=== PATIENT | female | born 1930 | race Caucasian/White ===

== ENCOUNTER 2016-04-13 13:04 | Inpatient (IN) | payer OTHER ==
[~2016-04-13] VITALS: Ht 160 cm; Wt 86.2 kg
--- NOTE | ~2016-04-13 | H ---
[facility] [place] [address] HISTORY AND PHYSICAL Name: WOJCIECH FORD Room #: 305-P ADM IN M.R.#: [id number] Admission: 04/13/16 Attend Phys: Ruben Cabral MD Discharge: Date of : 31 Report #: [id number] THIS REPORT FOR: //name// CC: Dr. Neel Markham MD [facility] Donnie Cabral DATE OF SERVICE: 04/13/2016 CHIEF COMPLAINT: Shortness of breath. HISTORY OF PRESENT ILLNESS: The patient is an 85-year-old female with history of hypertension and atrial fibrillation, presented to the Emergency Room complaining of increasing shortness of breath. Apparently, patient has been just getting more debilitated since she had a fall in 01/2016. She was admitted in [place] and underwent revision of her left knee arthroplasty. Subsequently, she was admitted at [facility] for rehab. She was discharged from [facility] few days prior to [place]. The patient also had an episode of UTI that made her more debilitated. The patient is presently staying with her family member and is able to ambulate with the help of a walker. She also complains of constipation and she had some nausea earlier this morning. She had a history of CHF and she has been on p.r.n. Lasix. The patient was seen in the Emergency Room, underwent chest x-ray, which showed pleural effusion and pulmonary edema. She received Lasix. She has been seen by psychiatrist in the past for depression too. PAST MEDICAL HISTORY: Significant for atrial fibrillation diagnosed in 02/2015. She is followed by Dr. Markham. She had an echocardiogram in 09/2014, which showed normal ejection fraction and diastolic function. She also had a nuclear medicine stress test at that time, which was reported as low likelihood for ischemia. She has a history of depression, history of lumbar stenosis, back surgery in the past, bilateral total hip replacement. Total knee replacement. She had revision of the left total knee in 01/2016. History of right shoulder surgery, hysterectomy, bilateral carpal tunnel release, bowel resection, cholecystectomy, mild hypercalcemia. No history of any peptic ulcer disease or bleeding disorder. SOCIAL HISTORY: She was living with her grandson prior to being admitted at [place]. Presently, she lives with her daughter. No smoking, alcohol abuse or illicit drug abuse. FAMILY HISTORY: Father committed suicide at age 49. Mother secondary to PR. ALLERGIES: She has multiple allergies. She is allergic to CIPROFLOXACIN, [facility] [address] [place] [address] HISTORY AND PHYSICAL Name: WOJCIECH FORD Room #: 305-P ADM IN M.R.#: [id number] Admission: 04/13/16 Attend Phys: Ruben Cabral MD Discharge: Date of : 31 Report #: [id number] DOXYCYCLINE, ZETIA, FENOFIBRATE, MORPHINE, PENICILLIN, SIMVASTATIN, SULFA. Please look at the nursing documentation for reaction. HOME MEDICATIONS: Reviewed. Please look at the nursing documentation for home medications. REVIEW OF SYSTEMS: CONSTITUTIONAL: No recent weight loss, weight gain. No fever or chills. EYES: No change in vision. THROAT: Denies any sore throat. CARDIOVASCULAR: As above. She had no dizziness or palpitations. RESPIRATORY: As above. No cough, expectoration. She has had shortness of breath with minimal activity. GASTROINTESTINAL: No nausea/vomiting today, but she did have nausea/vomiting earlier. She is constipated. GENITOURINARY: No dysuria, hematuria. NEUROLOGIC: No focal numbness or weakness of extremities. PSYCHIATRIC: Denies any suicidal ideation. A 12-point review of system is negative, other than the positive and negative dictated in the history of present illness and review of systems. PHYSICAL EXAMINATION: VITAL SIGNS: Reviewed. Blood pressure is ____, heart rate of 56 per minute, afebrile. She is saturating around 93% on room air, not in acute respiratory distress. HEENT: Pupils equal and reactive to light. Throat appears normal. NECK: Supple. JVD is elevated. No bruit noted. No lymphadenopathy. CARDIOVASCULAR SYSTEM: S1, S2. Negative S3. Irregularly irregular. No murmur. CHEST: Bilateral air entry present. Reduced breath sound in the bases. She has bilateral basilar crackles. ABDOMEN: Soft. Bowel sounds present. No mass, no organomegaly, no tenderness. EXTREMITIES: Periphery has trace to 1+ pedal edema bilaterally. No calf tenderness. Very difficult to appreciate dorsalis pedis bilaterally. CHEST: She has some bruises over the lower right chest wall and right breast. No tenderness noted. LABORATORIES: Reviewed. EKG showed atrial fibrillation with nonspecific intraventricular conduction defect. There is ventricular premature complex. [place]roponin [place] [address]. Albumin is 2.7. BUN and creatinine are 25 and 1.3. AST and ALT are within normal limit. Urine is presently pending. White count ____. Normal hemoglobin, hematocrit and platelets. Chest x-ray showed unchanged cardiomegaly with increasing lower lobe atelectasis and pleural effusion with increasing left lung congestion. CT of the brain showed no acute intracranial abnormalities. There is age-related [facility] [address] [place] [address] HISTORY AND PHYSICAL Name: WOJCIECH FORD Room #: 305-P ADM IN .R.#: [id number] Admission: 04/13/16 Attend Phys: Ruben Cabral MD Discharge: Date of : 31 Report #: [id number] atrophy and chronic small vessel ischemic disease. ASSESSMENT: 1. Acute respiratory insufficiency secondary to congestive heart failure. 2. Congestive heart failure, likely acute on chronic diastolic heart failure. The patient will be continued on IV Lasix. We will consult cardiology. We will repeat echocardiogram to evaluate left ventricular function. Serial troponins have been requested to rule out any underlying ischemic heart disease. The patient is already on a beta-becca. May benefit with some angiotensin-converting inhibitor. 3. Severe debility. The patient has been getting more debilitated since she had the fall in 01/2016. We will consult physical and occupational therapy. We will also advise case reviewer come and talk to family about possible correction unit. 4. Lower extremity swelling and peripheral vascular disease. We will obtain both artery and venous Doppler of the lower extremities to rule out deep venous thrombosis and also evaluate for peripheral vascular disease. 5. Constipation. The patient will be continued on Colace, MiraLax and also Dulcolax suppository as needed. 6. Atrial fibrillation: The patient will be continued on Xarelto, beta-becca and digoxin. 7. History of depression: The patient will be continued on present home medication for depression. 8. Deep venous thrombosis prophylaxis. The patient is on Xarelto. Treatment plan has been explained to the patient and the patient's family in detail. <ELECTRONICALLY SIGNED> By: Ruben Cabral MD 04/14/16 1336 1553 1710 Ruben Cabral MD /nt
--- NOTE | ~2016-04-13 | 2DMMODE ---
[facility] [place] [address] 2 D/M-MODE ECHOCARDIOGRAM Name: WOJCIECH FORD Room #: 305-P [facility] IN M.R.#: [id number] Admission: 04/13/16 Attend Phys: Mikey Huerta Discharge: Date of : 31 Date of Service: 04/14/16 1439 Report #: [id number] THIS REPORT FOR: //name// Transthoracic Echocardiography Ordering physician: Goran Andrade MD Referring physician: Donnie Felder MD Top Stitcher: DARLIN Gotti Indications/History: CHF, Atrial fibrillation. BP: 132 / HR: 56bpm Height: 62in Weight: 189.6lb 72 Study data: M-mode, complete 2D, complete spectral Doppler, and color Doppler. Location: Bedside. Routine. Image quality was good. 2D measurements Normal Normal LVID ED 52.3mm 36-57 IVS ED 13.6mm 6-11 LVID ES 43.5mm 23-40 LVPW ED 10.4mm 6-11 LA volume 49ml/m2 16-28 AoRoot diam 32.7mm 21-37 index ED LVOT diameter 20mm 18-23 Findings: Left ventricle: The cavity size was normal. Wall thickness was normal. Systolic function was moderately to severely reduced. The estimated ejection fraction was in the range of 30% to 35%. Moderate diffuse hypokinesis. Regional wall motion abnormalities: Severe hypokinesis of the basal-mid inferoseptal, entire inferior, apical septal, and apical myocardium. Right ventricle: The cavity size was at the upper limits of normal. Systolic function was normal. Ventricular septum: Septal motion showed abnormal function and dyssynergy. Right atrium: The atrium was dilated. Left atrium: The atrium was dilated. Volume index: 49ml/m2 [facility] [address] [place] [address] 2 D/M-MODE ECHOCARDIOGRAM Name: WOJCIECH FORD Room #: 305-P ADM IN M.R.#: [id number] Admission: 04/13/16 Attend Phys: Rubenfidelia Cabral Mikey Discharge: Date of : 31 Date of Service: 04/14/16 1439 Report #: [id number] (S). Aortic valve: Trileaflet; mildly thickened, mildly calcified leaflets. Doppler: There was no stenosis. Trivial regurgitation. Peak velocity: 133.2cm/s (S). Mitral valve: Mildly calcified annulus. Doppler: There was no evidence for stenosis. Moderate regurgitation. Peak E-wave velocity: 111.9cm/s. Peak gradient: 5mm Hg (D). Tricuspid valve: Structurally normal valve. Doppler: There was no evidence for stenosis. Moderate-severe regurgitation. Regurgitant peak velocity: 318.9cm/s. Peak RV-RA gradient: 41mm Hg (S). Pulmonic valve: Structurally normal valve. Doppler: There was no evidence for stenosis. Trivial regurgitation. Pericardium: There was no pericardial effusion. Aorta: Aortic root: The aortic root was normal in size. Pulmonary artery: Systolic pressure was estimated to be 56mm Hg. Diastolic function: The study was not technically sufficient to allow evaluation of LV diastolic dysfunction due to atrial fibrillation. Systemic veins: Inferior vena cava: The vessel was dilated; respirophasic changes in dimension were absent. Conclusions 1. Left ventricle: Systolic function was moderately to severely reduced. The estimated ejection fraction was in the range of 30% to 35%. Moderate diffuse hypokinesis. 2. Ventricular septum: Septal motion showed abnormal function and dyssynergy. 3. Right atrium: The atrium was dilated. 4. Left atrium: The atrium was dilated. 5. Aortic valve: Trileaflet; mildly thickened, mildly calcified leaflets. Trivial regurgitation. 6. Mitral valve: Mildly calcified annulus. Moderate regurgitation. 7. Pulmonic valve: Trivial regurgitation. 8. Tricuspid valve: Moderate-severe regurgitation. 9. Pulmonary arteries: Systolic pressure was estimated to be 56mm Hg. [facility] [email or web address] [place] [address] 2 D/M-MODE ECHOCARDIOGRAM Name: WOJCIECH FORD Room #: 305-P [facility] IN .R.#: [id number] Admission: 04/13/16 Attend Phys: Mikey Huerta Discharge: Date of : 31 Date of Service: 04/14/16 1439 Report #: [id number] 10. Inferior vena cava: The vessel was dilated; respirophasic changes in dimension were absent. <ELECTRONICALLY SIGNED> By: Dirk Schaefer MD 04/14/16 1602 1439 01 Dirk Schaefer MD /yamini
--- NOTE | ~2016-04-13 | HC ---
[facility] [place] [address] CONSULTATION Name: WOJCIECH FORD Room #: 305-P ADM IN M.R.#: [id number] Admission: 04/13/16 Attend Phys: Ruben Cabral MD Discharge: Date of : 31 Report #: [id number] THIS REPORT FOR: //name// CC: Donnie Cabral DATE OF SERVICE: 04/13/2016 INDICATION: Dyspnea. HISTORY OF PRESENT ILLNESS: This is an 85-year-old female presenting with generalized weakness, confusion, and dyspnea. She had just been discharged from rehabilitation after undergoing a right knee/femur surgery at [facility]. She had been at [facility] for the past several weeks for rehabilitation. She was walking with a walker, but had generalized weakness today. She reports increasing shortness of breath for the past several days. There is no history of angina, fever or chills. The patient has a prior history of heart failure attributed to diastolic dysfunction. She was prescribed Lasix on a p.r.n. basis and instructed to check her daily weights. It seems that this was not followed with by family members. PAST MEDICAL HISTORY: Chronic atrial fibrillation on anticoagulation therapy, chronic kidney disease, degenerative joint disease, spinal stenosis, multiple orthopedic surgeries, general debility. ALLERGIES: Include Cipro, doxycycline and Zetia, statins. MEDICATIONS: PENICILLIN, SULFA, MORPHINE. MEDICATIONS AT HOME: Include metoprolol 100 mg daily, verapamil 240 mg daily, digoxin 0.125 mg daily, Xarelto 50 mg daily, Zoloft 50 mg, colchicine. SOCIAL HISTORY: Negative for tobacco use. FAMILY HISTORY: Negative for premature CAD. REVIEW OF SYSTEMS: A full 10-point review of systems performed. Only the pertinent positives and negatives are described in the HPI. PHYSICAL EXAMINATION: VITAL SIGNS: Blood pressure is 120/80, heart rate is 60 beats per minute. GENERAL APPEARANCE: An elderly appearing female in no acute respiratory distress. HEAD AND EYES: Normocephalic. Sclerae are anicteric. ENT: Oral mucosa moist. NECK: Supple. [facility] [address] [place] [address] CONSULTATION Name: WOJCIECH FORD Room #: 305-P ADM IN M.R.#: [id number] Admission: 04/13/16 Attend Phys: Ruben Cabral MD Discharge: Date of : 31 Report #: [id number] LUNGS: Diminished breath sounds at the bases. CARDIAC: S1, S2 positive. ABDOMEN: Soft, nontender. EXTREMITIES: Cool feet, 2-3+ bilateral lower extremity edema. LABORATORY VALUES: White count is 9.2, hemoglobin is 12.0. Sodium is 143, creatinine is 1.3. Troponin is negative. ASSESSMENT: 1. Acute on chronic diastolic heart failure, possibly related to dietary indiscretion. Continue with IV diuresis. Strict inputs and outputs should be maintained. Due to her physical disability, a Mcallister catheter should be placed. 2. Atrial fibrillation, the rate is controlled. Continue with beta becca and calcium channel becca. Check a digoxin level. 3. Hypertension. The blood pressure remains stable. 4. Hypercholesterolemia, intolerant to statins. 5. General debility, degenerative joint disease, physical therapy. Thank you for allowing me to participate in the care of your patient. <ELECTRONICALLY SIGNED> By: Goran Andrade MD 04/14/16 0838 1604 2338 Goran Andrade MD /nt
--- NOTE | ~2016-04-13 | HC ---
[facility] [place] [address] CONSULTATION Name: WOJCIECH FORD Room #: 305-P [facility] IN M.R.#: [id number] Admission: 04/13/16 Attend Phys: Ruben Cabral MD Discharge: 04/16/16 Date of : 31 Report #: [id number] THIS REPORT FOR: //name// CC: Donnie Cabral DATE OF SERVICE: 04/14/2016 HISTORY OF PRESENT ILLNESS: We were asked by Dr. Cabral to see the patient. The patient is an 85-year-old admitted yesterday with concerns about fluid retention and purple feet. The patient had a leg fracture in January and was in [facility], and according to the family has been progressing slowly since that time. Apparently yesterday, the patient was admitted without her clear knowledge of the event and among other issues had problems with fluid retention and purple discoloration of the feet and concerns about worsening heart failure. PAST MEDICAL HISTORY: Significant for atrial fibrillation, hypertension and chronic kidney disease. MEDICATIONS: Xarelto, digoxin, nitrofurantoin, metoprolol, verapamil, Zoloft, Cymbalta, Lasix, allopurinol and colchicine. ALLERGIES: CIPRO, DOXYCYCLINE, ZETIA, FENOFIBRATE, MORPHINE, PENICILLIN, SIMVASTATIN and SULFA. REVIEW OF SYSTEMS: GENERAL: The patient has a few complaints. As mentioned, the patient is not fully aware of the circumstances surrounding her admission. CONSTITUTIONAL: No new fatigue or sleeping problems. HEENT: No new hearing, vision, headache or vertigo. RESPIRATORY: No shortness of breath described. CARDIAC: No chest pain. SKIN: No rash or infection. The purple discoloration of the feet is noted, but no ulceration. ENDOCRINE: No hot or cold intolerance. GASTROINTESTINAL: No nausea or vomiting. GENITOURINARY: No frequency or urgency. NEUROLOGIC: No seizures or neuropathy. PSYCHIATRIC: Memory of events surrounding admission are not clear, but in general, no hallucinations or anxiety. MUSCULOSKELETAL: No joint pain, no muscle pain, but does have swelling of the feet. IMMUNOLOGIC: No lupoid rash, no rheumatoid arthritides. PHYSICAL EXAMINATION: VITAL SIGNS: Blood pressure 132/72, heart rate 68, respiratory rate 18, [facility] [address] [place] [address] CONSULTATION Name: WOJCIECH FORD Room #: 305-P DIS IN M.R.#: [id number] Admission: 04/13/16 Attend Phys: Ruben Cabral MD Discharge: 04/16/16 Date of : 31 Report #: [id number] temperature 36.6 and O2 sat 92 on room air. GENERAL: The patient responds to questions appropriately but her memory is poor. HEENT: No scleral icterus, no arcus. Pupils are round and equal. Gaze is conjugate. NECK: No lymphadenopathy and no bruit. CHEST: Some crackles, more on the left than the right. HEART: Rhythm is irregular. I hear no murmurs. ABDOMEN: Soft, no mass and no tenderness. EXTREMITIES: Does have some swelling and purplish discoloration, no ulceration. I do feel 2+ left dorsalis pedis pulse and 1+ left popliteal pulse. I do not feel popliteal or distal pulses on the right. MUSCULOSKELETAL: No bone or joint deformity or dyssymmetry. NEUROLOGIC: No motor or sensory deficit, oriented to place and person. SKIN: No rash or infection. ASSESSMENT AND PLAN: The patient seems to have fluid retention with increased venous pattern. ____ thrombosis was noted on a duplex scan. There appears to be no evidence for arterial insufficiency, swelling in general was venous or lymphatic and purplish discoloration is typically increased venous pressure. The patient has no complaints of lower extremity issues and I see no cause for intervention at this point from our standpoint. Thank you for the consult. <ELECTRONICALLY SIGNED> By: Nico Velasquez MD 04/19/16 1024 1402 1740 Nico Velasquez MD /nt
--- NOTE | ~2016-04-13 | EKG ---
[address] [place] [address] ELECTROCARDIOGRAM REPORT Name: WOJCIECH FORD Room #: 305-P ADM IN M.R.#: [id number] Admission: 04/13/16 Attend Phys: Ruben Cabral MD Discharge: Date of : 31 Report #: [id number] THIS REPORT FOR: //name// [facility] ED Test Date: 2016-04-13 Test Time: 13:07:52 Pat Name: WOJCIECH FORD Department: Room: 305 Gender: F Fashion Director: BRITT : 1930 Requested By: Andre Wilson Order Number: [id number] MD: Zaheer Galeas Measurements Intervals [place] Rate: 80 P: [place]: QRS: 190 QRSD: 148 T: 89 QT: 382 QTc: 441 Interpretive Statements Atrial fibrillation Ventricular premature complex Anterolateral infarct, age indeterminate No previous ECG available for comparison Electronically Signed On 04-14-2016 8:53:56 PROFILE MILL OPERATOR TAPE CONTROL by Zaheer Galeas [email or web address] <ELECTRONICALLY SIGNED> By: Zaheer Galeas MD, [facility] 04/14/16 0853 1307 1307 Zaheer Galeas MD, FACC /EPI
[~2016-04-13 13:04] MED LIST: ALLOPURINOL 10100 M2 PO; APAP650 PO; ASPIR 8181 MG PO; ATENOLOL 100MG100 MG PO; AZITHROMYCIN 2250 MG PO; BUPROPION HCL100 MG PO; BYSTOLIC 5 MG5 M1 PO; COLCHICINE0.6 MG PO; COZAAR 25 MG TA25 M1 PO; CYMBALTA30 MG PO; LANOXIN 0.120.125 M2 PO; LASIX 80 MG TAB80 MG PO; METOPROLOL SUC100 MG PO; NAPROSYN500 MG PO; NITROFURANTOIN100 MG PO; SERTRALINE HCL50 MG PO; TIAZAC360 M1 PO; VERAPAMIL E.R240 M1 PO; XARELTO15 MG PO; ZOLOFT50 MG PO
[2016-04-13 13:05] VITALS: BP 129/71
[2016-04-13 14:03] LABS: ABSOLUTE NEUTROPHILS 7.4 thou/uL (1.4-8.2); BASOPHILS 0.4 % (0.0-2.0); EOSINOPHILS 1.3 % (0.0-3.0); HEMATOCRIT 37.7 % (37.0-47.0); LYMPHOCYTES 9.6 % (24.0-44.0); MANUAL DIFF NO; MCH 27.4 pg (26.0-34.0); MCHC 31.8 % (28.0-37.0); MCV 86.2 fL (80.0-100.0); MONOCYTES 8.8 % (1.0-8.0); PLATELET COUNT 225 thou/uL (150-400); POLYS 79.9 % (36.0-66.0); RBC 4.38 mil/uL (4.20-5.00); RDW 17.8 % (10.5-14.5); WBC 9.2 thou/uL (4.0-11.0)
[2016-04-13 14:11] LABS: CALCIUM 9.7 mg/dL (8.5-10.1); CREATININE 1.3 mg/dL (0.6-1.3); POTASSIUM 4.5 mmol/L (3.5-5.1)
[2016-04-13 14:24] LABS: ALBUMIN 2.7 g/dL (3.4-5.0); TOTAL PROTEIN 7.1 g/dL (6.4-8.2); TROPONIN-I 0.05 ng/mL (<0.04-0.07)
[2016-04-13 16:35] VITALS: BP 127/75
[2016-04-13 19:33] VITALS: BP 113/69
[2016-04-13 23:22] VITALS: BP 113/58
[2016-04-14 02:28] LABS: CALCIUM 9.2 mg/dL (8.5-10.1); CREATININE 1.3 mg/dL (0.6-1.3); MAGNESIUM 1.9 mg/dL (1.8-2.4); POTASSIUM 4.1 mmol/L (3.5-5.1)
[2016-04-14 02:31] LABS: ABSOLUTE NEUTROPHILS 6.2 thou/uL (1.4-8.2); BASOPHILS 1.4 % (0.0-2.0); EOSINOPHILS 2.4 % (0.0-3.0); HEMATOCRIT 36.4 % (37.0-47.0); HEMOGLOBIN 11.3 gm/dL (12.0-15.0); MCH 27.1 pg (26.0-34.0); MCV 87.7 fL (80.0-100.0); MONOCYTES 9.2 % (1.0-8.0); PLATELET COUNT 212 thou/uL (150-400); RBC 4.16 mil/uL (4.20-5.00); WBC 8.6 thou/uL (4.0-11.0)
[2016-04-14 02:42] LABS: MANUAL DIFF NO
[2016-04-14 03:36] VITALS: BP 99/62
[2016-04-14 08:37] VITALS: BP 132/72
[2016-04-14 11:33] LABS: URINE BILIRUBIN NEGATIVE (Negative); URINE BLOOD 2+ (Negative); URINE COLOR YELLOW; URINE GLUCOSE-RANDOM* NEGATIVE (Negative); URINE KETONES NEGATIVE (Negative); URINE LEUKOCYTES-REFLEX TRACE (Negative); URINE PROTEIN (DIPSTICK) NEGATIVE (Negative); URINE UROBILINOGEN 0.2 E.U./dl (0.2-1.0)
[2016-04-14 11:55] LABS: CRYSTALS None Seen /LPF (None Seen); HYALINE CASTS 0-3 Few /LPF (None Seen); SQUAMOUS 0-3 Few /LPF (0-3); URINE WBC-REFLEX 6-15 Few /HPF (0-5)
[2016-04-14 15:48] VITALS: BP 96/65
[2016-04-14 19:33] VITALS: BP 118/70
[2016-04-15 04:18] VITALS: BP 110/68
[2016-04-15 06:06] LABS: CALCIUM 9.4 mg/dL (8.5-10.1); CREATININE 1.4 mg/dL (0.6-1.3); MAGNESIUM 1.8 mg/dL (1.8-2.4); POTASSIUM 4.2 mmol/L (3.5-5.1)
[2016-04-15 08:19] VITALS: BP 126/75
[2016-04-15 15:10] VITALS: BP 112/61
[2016-04-15 20:00] VITALS: BP 131/73
[2016-04-16 04:00] VITALS: BP 106/56
[2016-04-16 06:34] LABS: CALCIUM 9.5 mg/dL (8.5-10.1); CREATININE 1.3 mg/dL (0.6-1.3); POTASSIUM 4.3 mmol/L (3.5-5.1)
[2016-04-16 07:25] VITALS: BP 117/73
[2016-04-16] MEDS ORDERED: LISINOPRIL5 MG PO (11:40)
[2016-04-16] MEDS ORDERED: K-DUR 20 MEQ T20 MEQ PO (11:40)
[2016-04-16] MEDS ORDERED: LASIX 40 MG TAB40 M2 PO (11:40)
[2016-04-16 12:09] VITALS: BP 117/73
[2016-04-16 12:15] VITALS: BP 114/68
[2016-04-16 15:32] VITALS: BP 117/73
== END 2016-04-16 16:00 | disposition home health service (06) | DRG 291 ==
LOC: ER 13:04 → 3N 16:31
PROVIDERS: Internal Medicine; Physician Assistant
DX: I13.0 Hypertensive heart and chronic kidney disease with heart failure and stage 1 through stage 4 chronic kidney disease, or unspecified chronic kidney disease (principal); E43 Unspecified severe protein-calorie malnutrition; J96.00 Acute respiratory failure, unspecified whether with hypoxia or hypercapnia; I50.43 Acute on chronic combined systolic (congestive) and diastolic (congestive) heart failure; I73.9 Peripheral vascular disease, unspecified; E78.00 Pure hypercholesterolemia, unspecified; I07.1 Rheumatic tricuspid insufficiency; N18.9 Chronic kidney disease, unspecified; E83.52 Hypercalcemia; I48.2 Chronic atrial fibrillation; F32.9 Major depressive disorder, single episode, unspecified; K59.00 Constipation, unspecified; M48.06 Spinal stenosis, lumbar region; M19.90 Unspecified osteoarthritis, unspecified site; Z96.641 Presence of right artificial hip joint; Z96.653 Presence of artificial knee joint, bilateral; Z96.611 Presence of right artificial shoulder joint; Z96.612 Presence of left artificial shoulder joint; Z68.33 Body mass index [BMI] 33.0-33.9, adult; Z79.01 Long term (current) use of anticoagulants; Z90.710 Acquired absence of both cervix and uterus; Z90.49 Acquired absence of other specified parts of digestive tract; Z88.1 Allergy status to other antibiotic agents; Z88.6 Allergy status to analgesic agent; Z88.8 Allergy status to other drugs, medicaments and biological substances; Z88.0 Allergy status to penicillin; Z88.2 Allergy status to sulfonamides; Z79.899 Other long term (current) drug therapy; Z82.49 Family history of ischemic heart disease and other diseases of the circulatory system; Z91.81 History of falling
CPT/HCPCS: 10096

== ENCOUNTER 2016-04-21 10:41 | Emergency (ER) | payer OTHER ==
[~2016-04-21] VITALS: Ht 165.1 cm; Wt 81.7 kg
[~2016-04-21 10:41] MED LIST changes: +K-DUR 20 MEQ T20 MEQ PO; +LASIX 40 MG TAB40 M2 PO; +LISINOPRIL5 MG PO
[2016-04-21 11:14] LABS: HEMATOCRIT 38.7 % (37.0-47.0); HEMOGLOBIN 12.3 gm/dL (12.0-15.0); MCH 27.1 pg (26.0-34.0); MCHC 31.9 % (28.0-37.0); PLATELET COUNT 217 thou/uL (150-400); RBC 4.55 mil/uL (4.20-5.00); RDW 18.6 % (10.5-14.5)
[2016-04-21 11:17] LABS: URINE BLOOD NEGATIVE (Negative); URINE COLOR YELLOW; URINE GLUCOSE-RANDOM* NEGATIVE (Negative); URINE KETONES NEGATIVE (Negative); URINE LEUKOCYTES-REFLEX NEGATIVE (Negative); URINE PROTEIN (DIPSTICK) TRACE (Negative)
[2016-04-21 11:18] LABS: MANUAL DIFF YES
[2016-04-21 11:19] LABS: URINE BILIRUBIN NEGATIVE (Negative)
[2016-04-21 11:21] LABS: CALCIUM 10.1 mg/dL (8.5-10.1); CREATININE 1.4 mg/dL (0.6-1.3); POTASSIUM 4.4 mmol/L (3.5-5.1)
[2016-04-21 11:37] LABS: ABSOLUTE NEUTROPHILS 9.2 thou/uL (1.4-8.2); ANISOCYTOSIS 1+; TOTAL CELL COUNT 100
[2016-04-21 12:49] LABS: ABG SAMPLE TYPE ARTERIAL; BE(vivo) 3.8 mmol/L (-2 to +3); LACTATE 1.78 mmol/L (0.5-2.0); O2(CT) 17.1 mL/dL (15.0-23.0); O2Hb 93.2 % (92.0-98.0); PCO2 35.8 mmHg (35.0-45.0); PO2 74.5 mmHg (80.0-100.0); STICK SITE L.BRACHIAL; pH 7.495 (7.360-7.450); sO2 96.1 % (92.0-98.0); tCO2 28.1 mmol/L (24.0-30.0)
== END 2016-04-21 13:25 | disposition home or self-care (01) ==
LOC: ER 10:41
PROVIDERS: Emergency Medicine
DX: R41.0 Disorientation, unspecified (principal); Z90.710 Acquired absence of both cervix and uterus; Z90.49 Acquired absence of other specified parts of digestive tract; Z96.653 Presence of artificial knee joint, bilateral; Z96.612 Presence of left artificial shoulder joint; Z96.611 Presence of right artificial shoulder joint; Z88.1 Allergy status to other antibiotic agents; Z88.5 Allergy status to narcotic agent; Z88.0 Allergy status to penicillin; Z88.2 Allergy status to sulfonamides; Z88.8 Allergy status to other drugs, medicaments and biological substances

== ENCOUNTER 2016-08-06 14:28 | Inpatient (IN) | payer OTHER ==
[2016-08-06] VITALS (7 sets, daily range): BP systolic 80–108; BP diastolic 41–82
[~2016-08-06] VITALS: Ht 160 cm; Wt 70.9 kg
--- NOTE | ~2016-08-06 | D ---
[facility] [address] DISCHARGE SUMMARY Name: WOJCIECH FORD Room #: 202-P [facility] IN M.R.#: [id number] Admission: 08/06/16 Attend Phys: Ruben Cabral MD Discharge: 08/14/16 Date of : 31 Report #: [id number] THIS REPORT FOR: //name// CC: Donnie Cabral DATE OF SERVICE: 08/14/2016 The patient was admitted to the hospital on 08/06/2016, discharged from the hospital on 08/14/2016. HISTORY OF PRESENT ILLNESS: The patient is an 85-year-old female with history of CHF, who presented to the hospital with dyspnea. Please refer to the admission H and P for details. In brief, the patient was also found to be hypotensive, and had elevated white counts on admission. She was also found to be in the acute on chronic renal failure. The patient was found to have pneumonia. HOSPITALIZATION COURSE: The patient was hospitalized at [facility]. She was started on broad spectrum antibiotics for pneumonia. The patient was treated in the ICU for respiratory failure. Safety Person and Infectious disease specialist were consulted. The patient was on the triple antibiotics. The patient has slow improvement. Eventually, the patient's oxygen requirement was low. She was severely lethargic shortly after admission, but it has completely resolved. Currently, the patient is in room air. She did not require BiPAP or intubation. Chest x-ray revealed right-sided pleural effusion, so thoracentesis was performed. Fluid analysis was consistent with transudate. The patient also was found to have acute kidney injury and chronic kidney failure, stage 3. Waiter/Waitress Tourist Class was consulted. Creatinine has improved after diuretics were held. The patient also has chronic atrial fibrillation. She is on metoprolol at home, that was continued. She was also treated with digoxin. Verapamil was held. The patient's heart failure remained compensated. JOSEPH inhibitors were held due to renal failure, and currently lisinopril is on hold. The patient's heart failure is compensated. She feels well, and her overall condition is stable. The patient was assessed by physical therapist. She will be transferred to the correction facility. [address] [address] DISCHARGE SUMMARY Name: WOJCIECH FORD Room #: 202-P [facility] IN .R.#: [id number] Admission: 08/06/16 Attend Phys: Ruben Cabral MD Discharge: 08/14/16 Date of : 31 Report #: [id number] DISCHARGE DIAGNOSES: 1. Healthcare-associated pneumonia, clinically much better. Zithromax will be continued for next few days. Vancomycin, aztreonam are already discontinued. 2. Acute respiratory failure due to above, resolved. The patient did not require intubation. 3. Right pleural effusion, status post thoracentesis. Findings are consistent with transudate. 4. Severe sepsis due to pneumonia, resolved. 5. Acute renal failure on chronic kidney disease stage 3. Much better. Current creatinine is 1.8, from 3.0. Lisinopril was held, and diuretics were also suspended. 6. Chronic atrial fibrillation, rate controlled. Xarelto is resumed. 7. Congestive heart failure, systolic. Ejection fraction between 30% and 35%. Currently compensated. The patient is on metoprolol. ARB and JOSEPH inhibitors avoided due to renal failure. DISCHARGE MEDICATIONS: Please refer to the medication reconciliation list in EMR. FOLLOWUP PLAN: 1. Follow up with the primary care physician in 1-2 weeks. 2. Follow up with the general education professor in 2-3 weeks. I spent more than 30 minutes to coordinate the patient's discharge from the hospital. <ELECTRONICALLY SIGNED> By: Will Myers MD 08/17/16 1247 1131 1253 Will Myers MD /nt
--- NOTE | ~2016-08-06 | H ---
[facility] [place] [address] HISTORY AND PHYSICAL Name: WOJCIECH FORD Room #: 170-10 ADM IN M.R.#: [id number] Admission: 08/06/16 Attend Phys: Ruben Cabral MD Discharge: Date of : 31 Report #: [id number] THIS REPORT FOR: //name// CC: Donnie Cabral DATE OF SERVICE: 08/06/2016 CHIEF COMPLAINT: Dyspnea. HISTORY OF PRESENT ILLNESS: The patient is an 85-year-old female with history of cardiomyopathy with EF of 35%, history of CHF, presented to the emergency room complaining of progressively worsening shortness of breath over the last couple of days. The patient denies any chest pain. No cough or expectoration. No fever or chills. Apparently, she lost around 80 pounds in the last few months. The patient was admitted here in April of this year for CHF. She had echocardiogram done at that time, which showed an EF of 30-35%, moderate diffuse hypokinesis and also nddwvncf-qw-ghvgov tricuspid regurgitation and moderate mitral regurgitation. She is followed by Dr. Markham. At that time, she also underwent further workup including a venous Doppler of lower extremity, which showed no evidence of any deep vein thrombosis. She also had acute renal failure during that admission. The patient had a fall in January 2016 and was admitted to [place] and underwent revision of the left total knee arthroplasty. The patient states she has been doing fairly well until 2 days ago when she started having progressive shortness of breath. She has had one episode of nausea and vomiting. Denies any abdominal pain. No fever or chills. No diarrhea. On arrival to the emergency room, the patient was found to be hypotensive. Her initial blood pressure was 86/43. She received 2 liters of fluid and presently her blood pressure is 102/60. PAST MEDICAL HISTORY: Significant for cardiomyopathy, EF of 30-35%; mitral regurgitation and tricuspid regurgitation. No peptic ulcer disease or bleeding disorder and no history of any stroke. No history of any diabetes. She does have history of hypertension. She has history of depression, lumbar stenosis, back surgery in the past, bilateral total knee replacement, total hip replacement, revision of the left total knee in January 2016, history of right shoulder surgery, hysterectomy, bilateral carpal tunnel release, bowel resection, cholecystectomy, and mild hypercalcemia. SOCIAL HISTORY: She lives with her daughter. No history of alcohol abuse or illicit drug abuse. She walks with help of a walker. [address] [address] HISTORY AND PHYSICAL Name: WOJCIECH FORD Room #: 170-10 ADM IN [facility].#: [id number] Admission: 08/06/16 Attend Phys: Ruben Cabral MD Discharge: Date of : 31 Report #: [id number] FAMILY HISTORY: Father committed suicide at age 49. Mother of [place]. ALLERGIES: She has multiple allergies, please look at the nursing documentation. HOME MEDICATIONS: Please look at the nursing documentation. Home meds were reviewed. REVIEW OF SYSTEMS: CONSTITUTIONAL: She has lost weight. She says she might have lost around 80 pounds. No fever or chills. EYES: No change in vision. THROAT: Denies any sore throat. CARDIOVASCULAR: As above. RESPIRATORY: As above. GASTROINTESTINAL: As above. GENITOURINARY: No dysuria or hematuria. NEUROLOGIC: No focal numbness or weakness of the extremity. PSYCHIATRIC: No anxiety or depression. A 12-point review of system is negative other than the positive and negative dictated in the history of present illness and in the review of system. PHYSICAL EXAMINATION: VITAL SIGNS: Blood pressure is 102/60, heart rate of 69 per minute, afebrile. GENERAL: The patient is awake and alert, not in acute respiratory distress. EYES: Pupils equal, reactive to light, nonicteric, conjunctivae. NECK: Supple. JVD is elevated. No bruit. No lymphadenopathy. CARDIOVASCULAR SYSTEM: S1, S2, negative S3. Soft systolic murmur in the left sternal border. CHEST: Bilateral air entry present. Bilateral wheeze present, few crackles noted in the bases. ABDOMEN: Soft, bowel sounds present, no mass, no organomegaly, and no tenderness. PERIPHERY: Has trace pedal edema. Dorsalis pedis 1+. NEUROLOGIC: No gross focal neurological deficit. LABORATORY DATA: Labs reviewed. White count is 11, hemoglobin is 12.8, and platelet is 159. Differential on the white count showed 85% segs, 1% bands. PT/INR pending. ABG done today showed a pH of 7.38, pCO2 of 31 and a pO2 of 72. Lactate is elevated at 4.2. Chemistry showed a potassium of 5.6, bicarb is 19, BUN and creatinine 51 and 2.8. Calcium is 10.2. AST and ALT 89 and 38. Bilirubin is 2.8. Troponin less than 0.04. BNP is 8654. EKG, sinus rhythm with ventricular premature complex intraventricular conduction defect and the left ventricular hypertrophy. Chest x-ray showed no acute abnormality. [facility] [address] [place] [address] HISTORY AND PHYSICAL Name: WOJCIECH FORD Room #: 170-10 ADM IN Michelle#: [id number] Admission: 08/06/16 Attend Phys: Ruben Cabral MD Discharge: Date of : 31 Report #: [id number] ASSESSMENT AND PLAN: 1. Hypotension. Probably rule out early sepsis, could be secondary to severe cardiomyopathy. The patient has received 2 liters of fluid. She appears to be volume overloaded at present. We will discontinue IV fluid. We will start her on IV Levophed. Cardiology will be consulted. Anticipate that she may need some Lasix if her blood pressure improves. The patient has been cultured, has been empirically started on Azactam and vancomycin. Pulmonary and critical care will also be consulted. We will repeat echocardiogram to evaluate LV function. We will also obtain serial troponin. I have also requested a VQ scan to rule out any pulmonary embolism. The patient will be started on IV heparin at this point. 2. History of atrial fibrillation, on Xarelto. We will hold off on Xarelto because of her acute renal failure. Will be on IV heparin at present. 3. Acute renal failure, likely prerenal probably secondary from her low blood pressure. We will consult nephrology. We will place a Mcallister catheter. We will follow renal function closely. 4. Hyperkalemia. The patient will be treated with Kayexalate. We will repeat potassium this evening. 5. Hypertension. Presently, the patient's blood pressure is low and we will also hold off on lisinopril in the setting of acute renal failure and hyperkalemia. 6. Deep venous thrombosis prophylaxis. She will be on heparin. Treatment plan has been explained to the patient in detail. <ELECTRONICALLY SIGNED> By: Ruben Cabral MD 08/06/167 1729 55 Ruben Cabral MD /nt
--- NOTE | ~2016-08-06 | CNG ---
[facility] [place] [address] CYTO-NONGYN REPORT PROCEDURE Name: WOJCIECH FORD Room #: 245-P ADM IN M.R.#: [id number] Admission: 08/06/16 Date of : 31 Discharge: Report #: [id number] Path Case #: [id number] CYTOPATHOLOGY REPORT COLLECTION DATE: 08/10/2016 RECEIVED DATE: 08/10/2016 SUBMITTING PHYS: Dr. Homar Patrick OTHER PHYS: Dr. Donnie Cabral CLINICAL HISTORY: Septic shock, Resp Failure SPECIMEN(S) RECEIVED: A.Pleural fluid * * * * * * * * * * * * FINAL DIAGNOSIS: A. Pleural fluid: - No malignant epithelial cells identified. Reactive mesothelial cells and acute and chronic inflammatory cells are identified. PATHOLOGIST: Janey Watson M.D. REPORT ELECTRONICALLY SIGNED BY: Janey Watson M.D. DATE/TIME: 08/11/2016 12:53 * * * * * * * * * * * * GROSS PATHOLOGY: A. Pleural fluid: The specimen is submitted unfixed, labeled "Wojciech Ford". Received by the Cytology Department is 12 mL of clear yellow fluid. One ThinPrep slide and a cell block were prepared. (mm 08.10.2016) TRAIN CLERK(S): Amira Mckinney, CT(ASCP), IAC INITIAL CPT CODE(S): A; 86359, 41796 Professional services performed by [facility] at [facility] [address], [place] [address] Technical services performed by [facility] at [address] [place] [address]., [address], [place] [address]. [facility] [address] [place] [address], [facility] [[email or web address] [address] [place], [place] [address] [place] [address] [place] [address] CYTO-NONGYN REPORT PROCEDURE Name: WOJCIECH FORD Room #: 245-P ADM IN M.R.#: [id number] Admission: 08/06/16 Date of : 31 Discharge: Report #: [id number] Path Case #: [id number] PHONE: [phone] DIRECTOR: Dread Millan M.D. * * * END OF REPORT * * *
--- NOTE | ~2016-08-06 | HC ---
[facility] [place] [address] CONSULTATION Name: WOJCIECH FORD Room #: 245-P ADM IN M.R.#: [id number] Admission: 08/06/16 Attend Phys: Ruben Cabral MD Discharge: Date of : 31 Report #: [id number] THIS REPORT FOR: //name// CC: Donnie Cabral REASON FOR CONSULTATION: Elevated creatinine. REASON FOR PRESENTATION: Shortness of breath. HISTORY OF PRESENT ILLNESS: This is an 85-year-old who had been in the hospital on multiple occasions. She is known to have heart failure with reported ejection fraction of 35%, xvyfjsjr-ry-qhmogd tricuspid regurgitation. She is followed by Dr. Markham. She presented to the emergency room complaining of shortness of breath. This has been progressively worsening in the last few days. The patient is usually maintained on 2 liters of oxygen at home. She denies any fever, chills or cough. She denies any change in the lower extremity swelling. She tells me that she is maintained on furosemide at home. She takes about 40 mg of furosemide a day. She lives with her daughter. She is strict with her salt intake. On presentation to the emergency room, the patient was found to have a creatinine of around 3. I was consulted to manage her kidney related issues. Looking at the patient's labs, it does look like the patient has chronic kidney disease. She was here back in April of 2016, and at that time, her creatinine was around 1.4; however, back in 2015, her creatinine had been in the 1.7 to 2 range. Her renal ultrasound was also reviewed and this was pretty much unremarkable for any acute kidney related issues. Her echo back in April of 2016 revealed an ejection fraction of around 30% with mild diffuse hypokinesis and moderate mitral regurgitation with severe tricuspid regurgitation. Her pulmonary artery pressure was evaluated at that time and it was thought to be at 60 mmHg. Stress test was done at that time along with further evaluation of her heart condition by Dr. Markham. It was listed on her discharge medications at that time that the patient should be on furosemide, digoxin, Xarelto, metoprolol, lisinopril, verapamil and potassium. The patient is not really sure about her medications. When evaluated this morning, she was alert, oriented. Creatinine was down to 2.9. PAST MEDICAL HISTORY: Numerous and include the followin. Chronic kidney disease. 2. Hypertension. 3. Heart failure with an ejection fraction of around 30%. 4. AFib. 5. Lumbar canal stenosis. 6. Bilateral total knee replacement. 7. Total hip replacement. 8. Right shoulder surgery. 9. Hysterectomy. 10. Bilateral carpal tunnel release. [address] [address] CONSULTATION Name: WOJCIECH FORD Room #: 245-P [facility] IN M.R.#: [id number] Admission: 08/06/16 Attend Phys: Ruben Cabral MD Discharge: Date of : 31 Report #: [id number] 11. Cholecystectomy. 12. Bowel resection. ALLERGIES: Numerous including PENICILLIN, SULFA and MORPHINE. SOCIAL HISTORY: She lives with her daughter. No drug or alcohol abuse. She used to be a reservations and ticketing agent. FAMILY HISTORY: Her mother has coronary artery disease. Her father of suicide. HOME MEDICATIONS: As I have stated, listed in the patient's medications the followin. Xarelto. 2. Verapamil. 3. Digoxin. 4. Lisinopril. 5. Lasix. REVIEW OF SYSTEMS: GENERAL: No fever or chills. CARDIOVASCULAR: Significant for shortness of breath. PULMONARY: No cough. GASTROINTESTINAL: Occasional nausea, but no vomiting. GENITOURINARY: No frequency, no urgency. PHYSICAL EXAMINATION: GENERAL: She is alert, oriented, in no apparent distress. VITAL SIGNS: Blood pressure was 115/72, on low-dose Levophed. Blood pressure when she was 86/43. HEAD AND NECK: No jugular venous distention. CHEST: Decreased air entry bilaterally. CARDIOVASCULAR: No rub detected. ABDOMEN: Soft, nontender. LOWER EXTREMITIES: Trace edema. LABORATORY VALUES: Reviewed. Creatinine on the trend down at 2.9 this morning. Blood sugar is on the low side. Phosphorus is mildly elevated at 6. Blood count showed mild leukocytosis. Blood gas reviewed. U/A with plus protein. No previous serum gvumsax-db-uergphkxbp ratio. Chest x-ray reviewed. ASSESSMENT, IMPRESSION AND PLAN: 1. Chronic kidney disease. 2. Advanced heart failure with an ejection fraction of 35%. [facility] [address] [place] [address] CONSULTATION Name: WOJCIECH FORD Room #: 245-P [facility] IN M.R.#: [id number] Admission: 08/06/16 Attend Phys: Ruben Cabral MD Discharge: Date of : 31 Report #: [id number] 3. Acute kidney injury. 4. Atrial fibrillation. 5. Her creatinine is slightly above her baseline and she is not making any progress with her urine. I will reduce the rate of her IV fluids. 6. Start Lasix. 7. She had an evidence of hyperkalemia yesterday. However, this has corrected with a dose of Kayexalate. 8. She does have very significant right-sided pleural effusion and I think that this is contributing to her issues. There might be an element of pneumonitis on that side that might have caused her sepsis like picture with an elevated white blood cells and hypertension. 9. Cultures were obtained. 10. Appropriate antibiotics were initiated. 11. Cardiology consultations. 12. Resume her diuretics. 13. We will initiate an angiotensin-converting enzyme inhibitor down the road. 14. We will defer further management of her cardiac issues to the cardiology team. <ELECTRONICALLY SIGNED> By: Nichelle Valdez MD 08/08/16 1640 0738 1152 Nichelle Valdez MD /nt
--- NOTE | ~2016-08-06 | HC ---
[facility] [place] [address] CONSULTATION Name: WOJCIECH FORD Room #: 245-P ADM IN M.R.#: [id number] Admission: 08/06/16 Attend Phys: Ruben Cabral MD Discharge: Date of : 31 Report #: [id number] THIS REPORT FOR: //name// CC: Donnie Cabral REASON FOR CONSULTATION: I was asked to evaluate concerning pneumonia and shock. HISTORY OF PRESENT ILLNESS: The patient is an 85-year-old with underlying history of cardiomyopathy with valvular heart disease. Hospitalized here in April with uncompensated congestive heart failure. She presents now with acute onset of shortness of breath, generalized weakness. This occurred 3 days ago. She has had no fever, chills or sweats. No cough or sputum production. No pleuritic chest pain. She is now on oxygen per nasal cannula at 2 liters. She does use oxygen at night as a baseline over the last 4 to 6 months. She has had no travel. No injuries. No exposure to other ill persons. She lives at home with her daughter. Immunization is up to date. She is a nonsmoker. When she was she was hypotensive. She had fluid resuscitation, placed in the Intensive Care Unit. She is now on 2 liters of oxygen per nasal cannula. She is on low dose Levophed drip. She has had approximately 3 liters of intake and minimal output. REVIEW OF SYSTEMS: Notes no rash, change in her baseline degenerative arthritis symptoms. No headache, pharyngitis symptoms. No adenopathy or weight loss. No dysuria or frequency. One episode of nausea, but no abdominal pain or diarrhea. PAST MEDICAL HISTORY: Cardiomyopathy, mitral regurgitation, tricuspid regurgitation, hypertension, depression, back surgery, bilateral total knee arthroplasties, total hip arthroplasty, bilateral shoulder surgeries, hysterectomy, bilateral carpal tunnel release, bowel resection, cholecystectomy, bilateral shoulder replacements. FAMILY HISTORY: Noncontributory. SOCIAL HISTORY: As noted above with no additions. PHYSICAL EXAMINATION: VITAL SIGNS: Afebrile and hemodynamically stable. GENERAL: She is alert and cooperative and pleasant, in no acute distress. HEENT: Unremarkable. NECK: Supple. SKIN: Unremarkable. LYMPHATIC: Unremarkable. LUNGS: Decreased breath sounds in the right base posteriorly. HEART: Regular with a 1/6 systolic murmur heard best at right sternal border. No gallop or rub. [address] [address] CONSULTATION Name: WOJCIECH FORD Room #: 245-P [facility] IN .R.#: [id number] Admission: 08/06/16 Attend Phys: Ruben Cabral MD Discharge: Date of : 31 Report #: [id number] ABDOMEN: Soft, nontender, no hepatosplenomegaly or mass. EXTREMITIES: Trace peripheral edema. ALLERGIES: PENICILLIN, SULFA, DOXYCYCLINE, CIPROFLOXACIN, SIMVASTATIN, FENOFIBRATE, ZETIA, MORPHINE. MEDICATIONS: As noted on her JUN, now on vancomycin, aztreonam. LABORATORY STUDIES: Sodium 136, potassium 4.9, bicarbonate 21, creatinine 2.9, AST 139, ALT 64, bilirubin 2.2, alkaline phosphatase 147, lactate 2.7, BNP 8650. Hemoglobin 12.4, platelet count 209,000, white count 12.2, 75% segs, 12% lymphs, 10% monocytes. Urinalysis, rare wbc's, many bacteria. ABG on 5 liters showed pO2 107, pCO2 34, pH 7.35. Blood culture and sputum culture pending. Influenza antigen negative. Chest x-ray, right lower lobe infiltrate with enlarging effusion. IMPRESSION: An 85-year-old with underlying cardiomyopathy who presents with shortness of breath, right-sided infiltrate and effusion. Whether we are dealing with a community-acquired pneumonia as the primary event or a component of congestive heart failure needs to be further worked out. She does have evidence of acute renal failure with a creatinine of 2.9 and decreased urine output. Her baseline creatinine is 1.3. In addition, she has multiple drug allergies. PLAN: Would recommend continuing IV antibiotic therapy. Further evaluation of the right pleural effusion would be appropriate. We will await aspiration of this fluid collection to decide next course of treatment. <ELECTRONICALLY SIGNED> By: Tray Brown MD 08/10/16 0904 1031 1626 Tray Brown MD /nt
--- NOTE | ~2016-08-06 | 2DMMODE ---
[facility] [address] [place] [address] 2 D/M-MODE ECHOCARDIOGRAM Name: WOJCIECH FORD Room #: 245-P ADM IN M.R.#: [id number] Admission: 08/06/16 Attend Phys: Mikey Huerta Discharge: Date of : 31 Date of Service: 08/07/16 1118 Report #: [id number] THIS REPORT FOR: //name// APPROVED REPORT Study performed: 08/07/2016 08:19:14 EXAM: Comprehensive 2D, Doppler, and color-flow Echocardiogram Patient Location: Bedside Room #: 245 Blood Pressure: 112/93 mmHg HR: 99 bpm Other Information Study Quality: Good Indications Congestive Heart Failure Dyspnea Atrial Fibrillation 2D Dimensions RVDd: 49.98 mm LVEF(%): 20.33 (>50%) IVSd: 11.32 (7-11mm) LVOT Diam: 21.79 (18-24mm) LVDd: 49.12 mm PWd: 11.28 (7-11mm) Ascending Ao: 27.75 (22-36mm) LVDs: 44.57 (25-40mm) Aortic Root: 31.76 mm IVC: 33.00 mm Camacho's LVEF: 20.33 % Volumes Left Atrial Volume (Systole) Single Plane 4CH: 95.58 mL Single Plane 2CH: 70.01 mL LA ESV Index: 49.00 mL/m2 Aortic Valve AoV Peak Eric.: 1.06 m/s AO Peak Gr.: 4.54 mmHg LVOT Max P.87 mmHg LVOT Max V: 0.84 m/s Mitral Valve MV Decel. Time: 142.20 ms [facility] [place] [address] 2 D/M-MODE ECHOCARDIOGRAM Name: WOJCIECH FORD Room #: 245-P ADM IN [facility].#: [id number] Admission: 08/06/16 Attend Phys: Mikey Huerta Discharge: Date of : 31 Date of Service: 08/07/16 1118 Report #: [id number] MV E Max Eric.: 1.20 m/s Pulmonary Valve PV Peak Eric.: 0.60 m/s PV Peak Gr.: 1.46 mmHg Tricuspid Valve TR Peak Eric.: 2.85 m/s RAP Estimate: 15.00 mmHg TR Peak Gr.: 32.60 mmHg Left Ventricle The left ventricle is normal size. Global hypokinesis There is normal left ventricular wall thickness. Left ventricular ejection fraction is moderate to severely decreased. LVEF is 30-35%. Diastolic funtion cannot be accurately assessed. Right Ventricle Right ventricle is dilated. The right ventricular systolic function is normal. Atria Left atrium is dilated. Right atrium is severely dilated. Aortic Valve Aortic valve is calcified. Trace regurgitation is present. There is no aortic valvular stenosis. Mitral Valve Mild-moderate annular calcification Moderate mitral regurgitation. No evidence of mitral valve stenosis. Tricuspid Valve The tricuspid valve is normal in structure. There is severe tricuspid regurgitation. The right atrial pressure is estimated at 15 mmHg. There is moderate pulmonary hypertension. Pulmonic Valve The pulmonary valve is normal in structure. There is no pulmonic valvular regurgitation. Great Vessels The aortic root is normal in size. The inferior vena cava is dilated with no inspiratory collapse. Pericardium There is no pericardial effusion. [facility] [place] [address] [place] [address] 2 D/M-MODE ECHOCARDIOGRAM Name: WOJCIECH FORD Room #: 245-P [facility] IN .R.#: [id number] Admission: 08/06/16 Attend Phys: Mikey Huerta Discharge: Date of : 31 Date of Service: 08/07/16 1118 Report #: [id number] <Conclusion> Left ventricular ejection fraction is moderate to severely decreased. LVEF is 30-35%. Global hypokinesis Right ventricle is dilated. Severe right atial enlargement Aortic valve is calcified. Trace regurgitation, no stenosis There is no aortic valvular stenosis. Mild-moderate annular calcification. Moderate mitral regurgitation. Pulmonary artery pressure of 45mmHg; dilated IVC There is no pericardial effusion. <ELECTRONICALLY SIGNED> By: Zaheer Galeas MD, [facility] 08/07/16 1118 17 111 Zaheer Galeas MD, FACC /INF
--- NOTE | ~2016-08-06 | HC ---
[facility] [place] [address] CONSULTATION Name: WOJCIECH FORD Room #: 245-P ADM IN M.R.#: [id number] Admission: 08/06/16 Attend Phys: Ruben Cabral MD Discharge: Date of : 31 Report #: [id number] THIS REPORT FOR: //name// CC: Donnie Cabral DATE OF SERVICE: 08/06/2016 REASON FOR CONSULTATION: Assess with ICU management and hypertension. IMPRESSION: 1. Possible sepsis. 2. Hnfth-yy-onfnwgu renal failure. 3. Hyperkalemia. 4. Possible urinary tract infection. 5. History of atrial fibrillation and cardiomyopathy. PLAN: I agree with ICU, sepsis protocol, pressors, monitor CVP, agree with antibiotic management both to cover urine and lung and agree with evaluation of lower extremities will and we will follow closely with you. HISTORY OF PRESENT ILLNESS: Very pleasant 85-year-old female who comes in and she had been doing well, has had several hospitalizations and is staying with family member for further rehab. Doing well, was even came and because over the last 2 days, feeling worrisome cough with sputum production but mainly with leg weakness and fatigue. She denied any definite chest pain. She has had some shortness of breath. MEDICATIONS: Home medications including metoprolol, Cymbalta, sertraline, verapamil, , Xarelto, digoxin, Lasix, lisinopril, potassium, melatonin, Ultram and allopurinol. PAST MEDICAL HISTORY: Depression, cardiomyopathy, spinal stenosis, AFib and palpitations. PAST SURGICAL HISTORY: Include bilateral shoulder replacement, knee replacement, hysterectomy, hip replacement, cholecystectomy and carpal tunnel. FAMILY HISTORY: Heart disease. SOCIAL HISTORY: Negative tobacco or ETOH. ALLERGIES: SIMVASTATIN, CIPRO, FENOFIBRATE, ZETIA, MORPHINE, PENICILLIN, SULFA and DOXYCYCLINE. REVIEW OF SYSTEMS: Positive shortness of breath and weakness. No definite [facility] [address] [place] [address] CONSULTATION Name: WOJCIECH FORD Room #: [facility] ADM IN M.R.#: [id number] Admission: 08/06/16 Attend Phys: Ruben Cabral MD Discharge: Date of : 31 Report #: [id number] chest pain. Positive leg weakness. PHYSICAL EXAMINATION: VITAL SIGNS: BP 102/60, pulse 67 and respirations 19. LUNGS: Showed decreased breath sounds. HEART: Regular. ABDOMEN: Bowel sounds present. Nontender. EXTREMITIES: Showed chronic change. NEUROLOGICAL: Alert and oriented. Moves all extremities. LABORATORY DATA: White count 11, hemoglobin 12.8 and platelets 159. BUN 51 and creatinine 2.8. Calcium interestingly 10.2 with an albumin of 3.3. pH 7.3, pCO2 of 31, pO2 of 72 and bicarbonate 18 with a lactate of 4.2. UA did show bacteria greater than 30, leukocyte negative, however. Total bilirubin was 3.0. Influenza was negative. RADIOLOGICAL DATA: Chest x-ray showed no significant infiltrates. We will follow closely with you. <ELECTRONICALLY SIGNED> By: Stuart Lujan MD 08/09/16 2147 1808 0706 Stuart Lujan MD /nt
--- NOTE | ~2016-08-06 | HC ---
[facility] [place] [address] CONSULTATION Name: WOJCIECH FORD Room #: 245-P ADM IN M.R.#: [id number] Admission: 08/06/16 Attend Phys: Ruben Cabral MD Discharge: Date of : 31 Report #: [id number] THIS REPORT FOR: //name// CC: Donnie Cabral HISTORY OF PRESENT ILLNESS: The patient is an 85-year-old female, known to myself. History of moderate LV dysfunction. She has had some recurrent heart failure hospitalizations. The ejection fraction have been 30-35%, echo being performed, looks for this to be about in that [facility] with moderate valvular insufficiency. It looks like she developed pneumonia, dyspnea and hypotension, now with a bit of hypoperfusion of the kidneys, although she is now alert and oriented, on oxygen, hemodynamically stable on low dose Levophed and some fluids. She has permanent AFib. She has been anticoagulated with Xarelto low dose 15 mg a day. She lives with her daughter in [place]. They have been trying to push fluids on her. She has been compliant with medications, which were metoprolol 100, Cymbalta, sertraline, verapamil 240, Xarelto 15, and digoxin 0.125, which I had actually did discontinue Lasix 40, lisinopril 5, potassium 20, melatonin, Ultram, and allopurinol. She became progressively short of breath for the last 2 days. Denies fever or chills. There was some episode of nausea and vomiting. No chest pain or pressure. She was found to be hypotensive 70s in the Emergency Room, received 2 liters of fluid with improvement in low dose Levophed. Chest x-ray shows cardiomegaly, atelectasis, pneumonia, and right pleural effusion, no significant pulmonary edema by chest x-ray. V/Q scan, low probability for PE done yesterday. LABORATORY WORK: Potassium 4.9 and creatinine 2.9, somewhat slightly above her baseline. Liver function tests mildly elevated. Troponin, not elevated. BNP 8600 and lactate 2.5. No digoxin level, it has been stopped. H and H 12 and 39, white count 12.2 and platelets 209. PAST MEDICAL HISTORY: Positive for the cardiomyopathy, permanent AFib, DJD, hypertension, hypercholesterolemia, hip replacement, cholecystectomy, carpal tunnel, history of recurrent heart failure, systolic and diastolic, and some dietary noncompliance. SOCIAL HISTORY: Not a smoker. No current alcohol use. Lives with one of her children. Moderate caffeine. ALLERGIES: PENICILLIN, SULFA, ZETIA, CIPRO, FENOFIBRATE AND SIMVASTATIN. FAMILY HISTORY: Mother did have premature coronary disease. REVIEW OF SYSTEMS: Negative except for some intermittent constipation issues. PHYSICAL EXAMINATION: VITAL SIGNS: Pulse 90s and irregular and blood pressure 112/76. [address] [address] CONSULTATION Name: WOJCIECH FORD Room #: 245-P ADM IN M.R.#: [id number] Admission: 08/06/16 Attend Phys: Ruben Cabral MD Discharge: Date of : 31 Report #: [id number] HEENT: Eyes reveal xanthelasmas. There is arcus senilis. Pharynx is clear, slightly dry mucous membranes. NECK: Shows preserved upstrokes without JVD or bruits. LUNGS: Prolonged expiratory phase, diminished in the bases, right greater than left. CARDIOVASCULAR: Irregularly irregular S1, S2, holosystolic murmur at the apex. ABDOMEN: Soft, without hepatosplenomegaly or abdominal bruit. EXTREMITIES: Reveal trace nonpitting edema. NEUROLOGIC: Nonfocal. SKIN: Warm and dry without xanthoma or ulcer. MUSCULOSKELETAL: Generalized arthritic changes, did not ambulate. ASSESSMENT: 1. Pneumonia with transient hypotension. 2. Moderate cardiomyopathy, functional class 1-2, felt to be nonischemic. 3. Permanent atrial fibrillation. 4. Chronic kidney disease with acute insult on top of chronic. 5. Hypoxia. 6. Degenerative joint disease. 7. Relative dietary noncompliance. 8. Moderate valvular insufficiency. 9. Pulmonary hypertension, PA pressure of 50-55 on echo. RECOMMENDATIONS AND PLAN: Continue with rate control, may have to consider possible thoracentesis of that effusion. Hemodynamics have improved, would wean Levophed. I do not believe there has been a significant demise in the cardiac status. We will need to hopefully restart AV node inhibiting drugs. Once blood pressure has stabilized here, we will initiate beta becca first and Lasix per Nephrology, currently on 40 IV b.i.d. We will obtain the final echo report, but does not look like there is significant change. We will follow with you. <ELECTRONICALLY SIGNED> By: Pee Markham MD, FACC 08/11/16 0921 0836 1340 Pee Markham MD, FACC /nt
--- NOTE | ~2016-08-06 | EKG ---
[place] [address] [facility] [place] [address] ELECTROCARDIOGRAM REPORT Name: WOJCIECH FORD Room #: 245-P ADM IN M.R.#: [id number] Admission: 08/06/16 Attend Phys: Ruben Cabral MD Discharge: Date of : 31 Report #: [id number] THIS REPORT FOR: //name// [facility] ED Test Date: 2016-08-06 Test Time: 15:03:30 Pat Name: WOJCIECH FORD Department: Room: [facility] Gender: F Sign Out Clerk: Anyi LUNA : 1930 Requested By: To Gonzales Order Number: [id number] MD: Zaheer Galeas Measurements Intervals [place] Rate: 63 P: 78 IL: 154 QRS: -60 QRSD: 168 T: 136 QT: 527 QTc: 540 Interpretive Statements Atrial fibrillation Ventricular premature complex Left bundle branch block Compared to ECG 04/13/2016 13:07:52 lateral Q waves are no longer present Electronically Signed On 08-07-2016 8:26:43 CDT by Zaheer Galeas [email or web address] <ELECTRONICALLY SIGNED> By: Zaheer Galeas MD, [facility] 08/07/16 0826 1503 1503 Zaheer Galeas MD, [facility] /EPI
[2016-08-06] MEDS ORDERED: LEVOTHYROXIN0.075 MG PO (14:50)
[2016-08-06 15:06] LABS: HEMATOCRIT 40.1 % (37.0-47.0); HEMOGLOBIN 12.8 gm/dL (12.0-15.0); MCV 90.5 fL (80.0-100.0); PLATELET COUNT 159 thou/uL (150-400); RBC 4.43 mil/uL (4.20-5.00); RDW 20.5 % (10.5-14.5)
[2016-08-06 15:07] LABS: MANUAL DIFF YES
[2016-08-06 15:17] LABS: ANION GAP 18 mmol/L (7-16); BUN 51 mg/dL (7-18); CALCIUM 10.2 mg/dL (8.5-10.1); CHLORIDE 100 mmol/L (98-107); CO2 19 mmol/L (21-32); CREATININE 2.8 mg/dL (0.6-1.0); GLUCOSE 76 mg/dL (74-106); POTASSIUM 5.6 mmol/L (3.5-5.1); SODIUM 137 mmol/L (136-145)
[2016-08-06 15:23] LABS: ABSOLUTE NEUTROPHILS 9.5 thou/uL (1.4-8.2); PLATELET ESTIMATE NORMAL; TOTAL CELL COUNT 100
[2016-08-06 15:27] LABS: ALBUMIN 3.3 g/dL (3.4-5.0); ALKALINE PHOSPHATASE 156 U/L (46-116); NT-PRO BRAIN NAT PEPTIDE 8654 pg/mL (<300); SGOT 89 U/L (15-37); SGPT 38 U/L (30-65); TOTAL BILIRUBIN 2.8 mg/dL (<0.1-1.0); TOTAL PROTEIN 7.1 g/dL (6.4-8.2); TROPONIN-I < 0.04 ng/mL (<0.04-0.07)
[2016-08-06 15:50] LABS: ABG SAMPLE TYPE ARTERIAL; HCO3 17.9 mmol/L (22.0-26.0); O2(CT) 17.1 mL/dL (15.0-23.0); O2Hb 91.7 % (92.0-98.0); PO2 72.1 mmHg (80.0-100.0); sO2 94.5 % (92.0-98.0); tCO2 18.9 mmol/L (24.0-30.0)
[2016-08-06 15:51] LABS: STICK SITE L.BRACHIAL
[2016-08-06 16:22] LABS: URINE BLOOD NEGATIVE (Negative); URINE COLOR YELLOW; URINE GLUCOSE-RANDOM* NEGATIVE (Negative); URINE KETONES NEGATIVE (Negative); URINE NITRITE NEGATIVE (Negative); URINE PROTEIN (DIPSTICK) 2+ (Negative); URINE SPECIFIC GRAVITY >= 1.030 (1.003-1.035)
[2016-08-06 16:23] LABS: URINE BILIRUBIN NEGATIVE (Negative)
[2016-08-06 16:25] LABS: BACTERIA >30 Many /HPF (None Seen); CASTS None Seen /LPF (None Seen); SQUAMOUS 0-3 Few /LPF (0-3); URINE RBC None Seen /HPF (0-2); URINE WBC 0-5 Rare /HPF (0-5)
[2016-08-06 16:26] LABS: AMORPHOUS URATES Moderate /LPF (None Seen)
[2016-08-06 16:42] LABS: DIRECT BILIRUBIN 1.2 mg/dL (<0.1-0.3)
[2016-08-07] VITALS (96 sets, daily range): BP systolic 73–125; BP diastolic 36–98
[2016-08-07 04:26] LABS: ABSOLUTE NEUTROPHILS 9.2 thou/uL (1.4-8.2); BASOPHILS 0.7 % (0.0-2.0); EOSINOPHILS 0.2 % (0.0-3.0); HEMOGLOBIN 12.4 gm/dL (12.0-15.0); LYMPHOCYTES 12.4 % (24.0-44.0); MCH 28.5 pg (26.0-34.0); MCHC 31.8 g/dL (28.0-37.0); MCV 89.6 fL (80.0-100.0); MONOCYTES 10.8 % (1.0-8.0); PLATELET COUNT 209 thou/uL (150-400); POLYS 75.9 % (36.0-66.0); RBC 4.35 mil/uL (4.20-5.00); WBC 12.2 thou/uL (4.0-11.0)
[2016-08-07 04:28] LABS: ALBUMIN 3.1 g/dL (3.4-5.0); CALCIUM 9.6 mg/dL (8.5-10.1); CREATININE 2.9 mg/dL (0.6-1.0); POTASSIUM 4.9 mmol/L (3.5-5.1)
[2016-08-07 04:33] LABS: MANUAL DIFF NO
[2016-08-07 04:34] LABS: ALBUMIN 3.2 g/dL (3.4-5.0); CALCIUM 9.7 mg/dL (8.5-10.1); MAGNESIUM 2.2 mg/dL (1.8-2.4); POTASSIUM 4.9 mmol/L (3.5-5.1); TOTAL BILIRUBIN 2.2 mg/dL (<0.1-1.0); TOTAL PROTEIN 6.8 g/dL (6.4-8.2); TROPONIN-I 0.05 ng/mL (<0.04-0.07)
[2016-08-07 05:31] LABS: ABG SAMPLE TYPE ARTERIAL; HCO3 18.6 mmol/L (22.0-26.0); LACTATE 2.97 mmol/L (0.5-2.0); O2(CT) 18.2 mL/dL (15.0-23.0); O2Hb 96.5 % (92.0-98.0); PCO2 34.3 mmHg (35.0-45.0); STICK SITE R.BRACHIAL; pH 7.353 (7.360-7.450); sO2 97.7 % (92.0-98.0); tCO2 19.7 mmol/L (24.0-30.0)
[2016-08-07 10:32] LABS: APTT 42.3 Seconds (24.5-32.8); INR 2.1
[2016-08-07 14:14] LABS: URINE CREATININE-RANDOM* 78.2 mg/dL (Not Estab.)
[2016-08-07 15:08] LABS: URINE PROTEIN-RANDOM* 684.5 mg/dL (Not Estab.)
[2016-08-08] VITALS (62 sets, daily range): BP systolic 77–201; BP diastolic 61–168
[2016-08-08 03:43] LABS: ABSOLUTE NEUTROPHILS 5.3 thou/uL (1.4-8.2); BASOPHILS 1.3 % (0.0-2.0); EOSINOPHILS 1.1 % (0.0-3.0); HEMATOCRIT 36.3 % (37.0-47.0); HEMOGLOBIN 11.6 gm/dL (12.0-15.0); LYMPHOCYTES 17.9 % (24.0-44.0); MANUAL DIFF NO; MCH 28.8 pg (26.0-34.0); MCHC 32.1 g/dL (28.0-37.0); MCV 89.8 fL (80.0-100.0); MONOCYTES 10.6 % (1.0-8.0); PLATELET COUNT 144 thou/uL (150-400); POLYS 69.1 % (36.0-66.0); RBC 4.04 mil/uL (4.20-5.00); RDW 20.5 % (10.5-14.5); WBC 7.6 thou/uL (4.0-11.0)
[2016-08-08 03:54] LABS: INR 1.6; PROTIME 17.1 Seconds (9.3-11.4)
[2016-08-08 03:56] LABS: % SATURATION 6 % (20-39); ALBUMIN 2.7 g/dL (3.4-5.0); CALCIUM 9.2 mg/dL (8.5-10.1); CREATININE 3.2 mg/dL (0.6-1.0); DIRECT BILIRUBIN 0.7 mg/dL (<0.1-0.3); IRON 16 ug/dL (50-170); MAGNESIUM 2.2 mg/dL (1.8-2.4); PHOSPHORUS 6.1 mg/dL (2.5-4.9); POTASSIUM 4.8 mmol/L (3.5-5.1); TIBC 250 ug/dL (250-450); TOTAL BILIRUBIN 1.3 mg/dL (<0.1-1.0); TOTAL PROTEIN 6.1 g/dL (6.4-8.2); UIBC 234 ug/dL
[2016-08-08 10:09] LABS: IgG 1166 mg/dL (700-1600)
[2016-08-09] VITALS (24 sets, daily range): BP systolic 87–124; BP diastolic 65–90
[2016-08-09 04:19] LABS: HEMOGLOBIN 11.6 gm/dL (12.0-15.0); MCH 28.8 pg (26.0-34.0); MCHC 32.3 g/dL (28.0-37.0); MCV 89.1 fL (80.0-100.0); PLATELET COUNT 139 thou/uL (150-400); RBC 4.04 mil/uL (4.20-5.00); RDW 20.1 % (10.5-14.5); WBC 8.8 thou/uL (4.0-11.0)
[2016-08-09 04:26] LABS: MANUAL DIFF YES
[2016-08-09 04:46] LABS: ALBUMIN 2.6 g/dL (3.4-5.0); CALCIUM 9.4 mg/dL (8.5-10.1); CREATININE 3.2 mg/dL (0.6-1.0); DIGOXIN 0.6 ng/mL (0.9-2.0); PHOSPHORUS 5.6 mg/dL (2.5-4.9); POTASSIUM 4.5 mmol/L (3.5-5.1); TOTAL BILIRUBIN 1.3 mg/dL (<0.1-1.0); TOTAL PROTEIN 6.3 g/dL (6.4-8.2)
[2016-08-09 05:08] LABS: ABSOLUTE NEUTROPHILS 6.7 thou/uL (1.4-8.2); ANISOCYTOSIS 2+; MACROCYTES 1+; MICROCYTES 1+; TOTAL CELL COUNT 100
[2016-08-09 05:09] LABS: BURR CELLS 1+; OVALOCYTES OCCASIONAL; POIKILOCYTOSIS 1+; POLYCHROMASIA SLIGHT
[2016-08-09 08:11] LABS: FIBRINOGEN 238.4 mg/dL (210-360); INR 1.4
[2016-08-10 03:20] LABS: CALCIUM 9.7 mg/dL (8.5-10.1); POTASSIUM 5.4 mmol/L (3.5-5.1)
[2016-08-10 15:06] LABS: HEPATITIS C VIRUS AB <0.1 (0.0-0.9)
[2016-08-10 16:20] LABS: COLOR YELLOW; TOTAL VOLUME 60 mL
[2016-08-10 16:21] LABS: CLARITY HAZY; MANUAL DIFF YES
[2016-08-10 16:22] LABS: BF NUCLEATED CELLS 338; BF RBC 372
[2016-08-10 18:00] VITALS: BP 114/84
[2016-08-10 18:23] LABS: BF MACROPHAGE 16
[2016-08-10 18:24] LABS: BF NEUTROPHILS 52
[2016-08-10 19:00] VITALS: BP 124/81
[2016-08-10 20:00] VITALS: BP 120/66
[2016-08-10 21:00] VITALS: BP 99/67
[2016-08-10 21:08] LABS: INFLUENZA B Negative (Negative); METAPNEUMOVIRUS Negative (Negative)
[2016-08-10 22:00] VITALS: BP 115/90
[2016-08-11] VITALS (19 sets, daily range): BP systolic 86–122; BP diastolic 59–85
[2016-08-11 04:37] LABS: HEMATOCRIT 37.5 % (37.0-47.0); MCH 28.8 pg (26.0-34.0); MCHC 32.1 g/dL (28.0-37.0); MCV 89.9 fL (80.0-100.0); PLATELET COUNT 123 thou/uL (150-400); RBC 4.18 mil/uL (4.20-5.00); WBC 7.8 thou/uL (4.0-11.0)
[2016-08-11 04:53] LABS: MANUAL DIFF YES
[2016-08-11 04:54] LABS: ALBUMIN 2.3 g/dL (3.4-5.0); CALCIUM 9.7 mg/dL (8.5-10.1); CREATININE 2.7 mg/dL (0.6-1.0); PHOSPHORUS 4.6 mg/dL (2.5-4.9); POTASSIUM 5.1 mmol/L (3.5-5.1); TOTAL BILIRUBIN 1.5 mg/dL (<0.1-1.0); TOTAL PROTEIN 6.1 g/dL (6.4-8.2)
[2016-08-11 06:01] LABS: ABG SAMPLE TYPE ARTERIAL; BE(vivo) 1.6 mmol/L (-2 to +3); HCO3 27.7 mmol/L (22.0-26.0); LACTATE 1.65 mmol/L (0.5-2.0); O2Hb 95.7 % (92.0-98.0); PCO2 49.2 mmHg (35.0-45.0); PO2 101.4 mmHg (80.0-100.0); pH 7.368 (7.360-7.450); sO2 97.4 % (92.0-98.0); tCO2 29.2 mmol/L (24.0-30.0)
[2016-08-11 06:02] LABS: STICK SITE L.RADIAL
[2016-08-11 08:38] LABS: ABSOLUTE NEUTROPHILS 6.8 thou/uL (1.4-8.2); METAMYELOCYTES 1 %; TOTAL CELL COUNT 100
[2016-08-11 08:39] LABS: ANISOCYTOSIS 2+; POIKILOCYTOSIS SLIGHT
[2016-08-11 09:09] LABS: BODY FLUID ALBUMIN 1.2 g/dL (()); BODY FLUID AMYLASE 11 U/L (()); BODY FLUID GLUCOSE 90 mg/dL (()); BODY FLUID LDH 74 IU/L (()); BODY FLUID PROTEIN 2.2 g/dL (())
[2016-08-12] VITALS (8 sets, daily range): BP systolic 98–120; BP diastolic 51–75
[2016-08-12 06:32] LABS: HEMATOCRIT 39.2 % (37.0-47.0); HEMOGLOBIN 12.5 gm/dL (12.0-15.0); MCV 90.7 fL (80.0-100.0); PLATELET COUNT 126 thou/uL (150-400); RBC 4.32 mil/uL (4.20-5.00); RDW 19.2 % (10.5-14.5); WBC 7.3 thou/uL (4.0-11.0)
[2016-08-12 06:41] LABS: MANUAL DIFF YES
[2016-08-12 06:55] LABS: ALBUMIN 2.4 g/dL (3.4-5.0); CALCIUM 9.6 mg/dL (8.5-10.1); CREATININE 2.3 mg/dL (0.6-1.0); PHOSPHORUS 4.6 mg/dL (2.5-4.9); POTASSIUM 4.6 mmol/L (3.5-5.1)
[2016-08-12 08:51] LABS: ABSOLUTE NEUTROPHILS 5.5 thou/uL (1.4-8.2); TOTAL CELL COUNT 100
[2016-08-12 08:52] LABS: ANISOCYTOSIS 2+; OVALOCYTES FEW
[2016-08-13 00:10] VITALS: BP 122/78
[2016-08-13 03:11] VITALS: BP 121/73
[2016-08-13 04:20] LABS: ABSOLUTE NEUTROPHILS 5.3 thou/uL (1.4-8.2); BASOPHILS 1.8 % (0.0-2.0); EOSINOPHILS 2.7 % (0.0-3.0); HEMATOCRIT 36.8 % (37.0-47.0); HEMOGLOBIN 11.9 gm/dL (12.0-15.0); LYMPHOCYTES 11.9 % (24.0-44.0); MCH 29.3 pg (26.0-34.0); MCHC 32.3 g/dL (28.0-37.0); MCV 90.7 fL (80.0-100.0); MONOCYTES 10.5 % (1.0-8.0); PLATELET COUNT 125 thou/uL (150-400); POLYS 73.1 % (36.0-66.0); RBC 4.06 mil/uL (4.20-5.00); RDW 19.4 % (10.5-14.5); WBC 7.3 thou/uL (4.0-11.0)
[2016-08-13 04:21] LABS: MANUAL DIFF NO
[2016-08-13 04:27] LABS: ALBUMIN 2.2 g/dL (3.4-5.0); CALCIUM 9.3 mg/dL (8.5-10.1); CREATININE 2.1 mg/dL (0.6-1.0); MAGNESIUM 1.8 mg/dL (1.8-2.4); POTASSIUM 4.1 mmol/L (3.5-5.1)
[2016-08-13 07:22] VITALS: BP 120/81
[2016-08-13 15:17] VITALS: BP 110/79
[2016-08-13 19:16] VITALS: BP 123/7
[2016-08-14 02:58] VITALS: BP 117/79
[2016-08-14 05:55] LABS: ALBUMIN 2.3 g/dL (3.4-5.0); CALCIUM 9.7 mg/dL (8.5-10.1); CREATININE 1.8 mg/dL (0.6-1.0); PHOSPHORUS 3.3 mg/dL (2.5-4.9)
[2016-08-14 07:13] VITALS: BP 99/57
[2016-08-14 11:10] VITALS: BP 117/64
[2016-08-14] MEDS ORDERED: COZAAR 25 MG TA25 M1 PO (11:35)
[2016-08-14] MEDS ORDERED: LOPRESSOR50 PO (11:35)
[2016-08-14] MEDS ORDERED: AZITHROMYCIN 2250 MG PO (11:35)
== END 2016-08-14 14:09 | DRG 871 ==
LOC: ER 14:28 → ICU 16:43 → EROBS 16:43 → ICU 19:58 → 2N 08-11 16:20
PROVIDERS: Hospitalist; Internal Medicine; Internal Medicine Endocrinology, Diabetes & Metabolism; Internal Medicine Nephrology; Internal Medicine Pulmonary Disease; Nurse Practitioner Adult Health; Nurse Practitioner Gerontology; Physician Assistant; Radiology Diagnostic Radiology; Specialist
PROC: BB4BZZZ Ultrasonography of Pleura (ICD-10-PCS; principal; 2016-08-10)
PROC: 0W993ZX Drainage of Right Pleural Cavity, Percutaneous Approach, Diagnostic (ICD-10-PCS; principal; 2016-08-10)
DX: A41.9 Sepsis, unspecified organism (principal); J18.9 Pneumonia, unspecified organism; J96.01 Acute respiratory failure with hypoxia; N17.9 Acute kidney failure, unspecified; N39.0 Urinary tract infection, site not specified; I13.0 Hypertensive heart and chronic kidney disease with heart failure and stage 1 through stage 4 chronic kidney disease, or unspecified chronic kidney disease; I42.8 Other cardiomyopathies; J90 Pleural effusion, not elsewhere classified; I38 Endocarditis, valve unspecified; I50.22 Chronic systolic (congestive) heart failure; I48.2 Chronic atrial fibrillation; N18.3 Chronic kidney disease, stage 3 (moderate); E87.5 Hyperkalemia; F32.9 Major depressive disorder, single episode, unspecified; R65.20 Severe sepsis without septic shock; E78.00 Pure hypercholesterolemia, unspecified; I27.2 Other secondary pulmonary hypertension; M19.90 Unspecified osteoarthritis, unspecified site; I95.2 Hypotension due to drugs; T46.4X5A Adverse effect of angiotensin-converting-enzyme inhibitors, initial encounter; T44.7X5A Adverse effect of beta-adrenoreceptor antagonists, initial encounter; K83.8 Other specified diseases of biliary tract; K76.0 Fatty (change of) liver, not elsewhere classified; E80.4 Gilbert syndrome; E80.6 Other disorders of bilirubin metabolism; Z96.653 Presence of artificial knee joint, bilateral; Z96.612 Presence of left artificial shoulder joint; Z96.611 Presence of right artificial shoulder joint; Z90.710 Acquired absence of both cervix and uterus; Z91.11 Patient's noncompliance with dietary regimen; Y92.89 Other specified places as the place of occurrence of the external cause; Z79.01 Long term (current) use of anticoagulants; Z79.899 Other long term (current) drug therapy; Z90.49 Acquired absence of other specified parts of digestive tract; Z88.0 Allergy status to penicillin; Z88.1 Allergy status to other antibiotic agents; Z88.2 Allergy status to sulfonamides; Z88.6 Allergy status to analgesic agent; Z88.8 Allergy status to other drugs, medicaments and biological substances; Z82.49 Family history of ischemic heart disease and other diseases of the circulatory system
CPT/HCPCS: 10078; 10081; 27000

== ENCOUNTER 2016-09-22 06:53 | Inpatient (IN) | payer OTHER ==
[2016-09-22] VITALS (7 sets, daily range): BP systolic 75–103; BP diastolic 43–71
[~2016-09-22] VITALS: Ht 160 cm; Wt 83.0 kg
--- NOTE | ~2016-09-22 | P ---
[facility] [place] [address] PROCEDURE REPORT Name: WOJCIECH FORD Room #: 200-I ADM IN M.R.#: [id number] Admission: 09/22/16 Attend Phys: Carl Maldonado Discharge: Date of : 31 Report #: [id number] THIS REPORT FOR: //name// CC: Carl Felder PROCEDURE: BiV pacemaker implantation and AV node ablation. PREOPERATIVE DIAGNOSES: 1. Nonischemic cardiomyopathy. 2. Permanent atrial fibrillation. 3. Atrial fibrillation with rapid ventricular response. HISTORY: The patient is an 85-year-old who has been with a nonischemic cardiomyopathy, EF of 30-35% as well as permanent atrial fibrillation who has AFib with rapid ventricular response, but is intolerant, on AV lauryn blocking agents due to fatigue and hypotension. She is here for placement of a Bi-V pacemaker followed by AV node ablation. ANESTHESIA: The patient underwent MAC anesthesia with no anesthesia related complications. PROCEDURE: The patient underwent informed consent. We discussed the details of the procedure including the risks, which include but not limited to bleeding, infection, vascular damage, cardiac perforation and pneumothorax. She understood these risks and is willing to proceed. As such, she was brought to the EP laboratory in a fasting and sedated state and prepped and draped in a sterile fashion. She received IV vancomycin prior to initiation of the procedure. Next, a venogram was performed showing patency of the left axillary vein. I then injected 25 mL of lidocaine below the level of left clavicle. Incision was made. A pocket was created over the prepectoral fascia and access was obtained twice to left axillary vein using the extrathoracic approach with sheath positioned using the modified Seldinger technique. Next, I positioned an RV. Under fluoroscopy, I placed an RV lead into the right ventricular apex with adequate pacing and sensing thresholds. This lead was sutured to the prepectoral fascia. Next, I placed my standard [employer] guide sheath into the right atrium and easily entered the coronary sinus with a guidewire. However, when I attempted to advance the sheath over the guidewire, it would not advance as there was a tortuous 90 degree takeoff at the coronary sinus ostium. When I did a venogram at the ostium, I could see the ostium, but it would not pass opacify the true coronary sinus body. As such, I placed a 90-degree inner sheath via the outer sheath and advanced this into the body of the coronary sinus. I was hoping I could advance my outer sheath over this, but this was unsuccessful. I therefore attempted to position a standard bipolar lead into this inner sheath. There was a nice posterolateral branch, which I had demonstrated using coronary sinus venography. For whatever reason, this lead would not advance through the sheath as it was very tight. I therefore removed [facility] [address] [place] [address] PROCEDURE REPORT Name: WOJCIECH FORD Room #: 200-I ADM IN M.R.#: [id number] Admission: 09/22/16 Attend Phys: Carl Maldonado Discharge: Date of : 31 Report #: [id number] this sheath and I removed both of the sheaths upsized my short sheath in the left axillary vein to a 10-Liberian sheath and then used a larger coronary sinus system. With the outer sheath again, I was able to place the wire into the coronary sinus with ease, but I could not advance the outer sheath; therefore, again I used another inner sheath and was able to advance this into pretty much the distal aspect of the coronary sinus. I then was able to deliver a quadripolar lead. I did have a lot of difficulties advancing this lead through the inner sheath and then used a wire which gave me some better assistance. I was able to get into this posterolateral branch and there were 2 good pacing and sensing thresholds. This patient really had very limited coronary sinus anatomy. I was able to split both sheaths and the lead remained in position. I sutured the lead to the prepectoral fascia, connected the device and closed the pocket in 2 layers and placed surgical glue to the outer skin layer. AV NODE ABLATION: Next, I injected 10 mL of lidocaine at the right groin region, obtained access to the right femoral vein x 1 and placed an SR0 sheath into the right atrium and 8 mm ablation catheter at the level of the His. My ablation catheter came right to the His and on the 1st ablation lesion, there was complete heart block within 2 seconds. We monitored for a period of 15-20 minutes and there was no return of conduction. The device was re-interrogated, found to be functioning normally. There was no underlying rhythm. As such, all catheters and sheaths were pulled, hemostasis was obtained and the patient awoke neurologically and hemodynamically intact with no complications and no significant bleeding. The implanted pacemaker was [employer] model # KR3543, serial #[id number]. The RV lead was a [employer] model #2088TC, 58 cm, serial #[id number]. LV lead was a [employer] model #1458Q, 86 cm, serial [id number]. The LV lead that I did not utilize was a [employer] model #1258T, 86 cm, serial #[id number]. The RV lead demonstrated a P-wave of 6.2 millivolts, pacing impedance of 429 ohms and pacing threshold 0.6 volts at 0.4 milliseconds. The LV lead demonstrated pacing impedance of 585 ohms and a pacing threshold 1.4 volts at 0.4 milliseconds and there was no phrenic nerve capture. I utilized vector 1 which is pacing from distal 1 to M2 as this was the best threshold. More proximal thresholds were much higher. As such, the device was programmed to the VVIR 80-120 mode. CONCLUSIONS: 1. Successful BiV pacemaker implantation. 2. Satisfactory right ventricular and left ventricular pacing and sensing [facility] [address] [place] [address] PROCEDURE REPORT Name: WOJCIECH FORD Room #: 200-I ADM IN M.R.#: [id number] Admission: 09/22/16 Attend Phys: Carl Maldonado Discharge: Date of : 31 Report #: [id number] thresholds. 3. Successful AV node ablation. By: 1250 1752 Vinh Martino MD /nt
--- NOTE | ~2016-09-22 | HC ---
[facility] [place] [address] CONSULTATION Name: WOJCIECH FORD Room #: 200-I ADM IN M.R.#: [id number] Admission: 09/22/16 Attend Phys: Carl Maldonado Discharge: Date of : 31 Report #: [id number] THIS REPORT FOR: //name// CC: Carl Felder DATE OF SERVICE: 09/22/2016 REASON FOR CONSULTATION: Evaluate for pacemaker with AV node ablation. HISTORY OF PRESENT ILLNESS: The patient is an 85-year-old with a history of permanent atrial fibrillation, EF of 30-35%, who has had multiple recent hospitalizations. She has been admitted to the hospital multiple times with hypotension, AFib with RVR, acute renal failure. She presents with increased shortness of breath and found to be in AFib with rapid ventricular response again. She has been intolerant of multiple medications for rate control due to hypotension. PAST MEDICAL HISTORY: Nonischemic cardiomyopathy, permanent AFib, hypertension, hyperlipidemia. SOCIAL HISTORY: Does not smoke. FAMILY HISTORY: Noncontributory. ALLERGIES: Multiple including PENICILLIN. REVIEW OF SYSTEMS: A 12-point review of systems was negative other than what I mentioned above. PHYSICAL EXAMINATION: VITAL SIGNS: Stable with heart rates in the 110s-120s, blood pressures in the 80s and 90s systolics. GENERAL: She is in no acute distress. HEENT: Oropharynx is clear. NECK: Supple, no thyromegaly. HEART: Irregular and tachycardic with no elevated jugular venous pressure. LUNGS: Clear bilaterally. ABDOMEN: Soft, nontender, nondistended. EXTREMITIES: There is no clubbing, cyanosis, edema. LABORATORY DATA: Labs have been reviewed. Last echo, EF 30-35%. Telemetry shows AFib with RVR. ASSESSMENT AND PLAN: In summary, the patient is an 85-year-old with atrial fibrillation with rapid ventricular response, who is intolerant of multiple [facility] [address] [place] [address] CONSULTATION Name: WOJCIECH FORD Room #: 200-I ADM IN [facility]#: [id number] Admission: 09/22/16 Attend Phys: Carl Maldonado Discharge: Date of : 31 Report #: [id number] medications. As such, I recommended a biventricular pacemaker due to her low ejection fraction and class II-III heart failure symptoms and atrioventricular node ablation. We have discussed the risks and benefits of the procedure and she is willing to proceed. By: 0921 1047 Vinh Martino MD /nt
--- NOTE | ~2016-09-22 | EKG ---
[address] [place] [address] ELECTROCARDIOGRAM REPORT Name: WOJCIECH FORD Room #: 200-I ADM IN M.R.#: [id number] Admission: 09/22/16 Attend Phys: Carl Maldonado Discharge: Date of : 31 Report #: [id number] THIS REPORT FOR: //name// [facility] Test Date: 2016-09-23 Test Time: 06:39:28 Pat Name: WOJCIECH FORD Department: Room: 200 I Gender: F Nail Kegger: jane : 1930 Requested By: Zaheer Galeas Order Number: [id number] MD: Zaheer Galeas Measurements Intervals [place] Rate: 110 P: 0 CT: 168 QRS: -48 QRSD: 176 T: 139 QT: 395 QTc: 535 Interpretive Statements Atrial fibrillation Left bundle branch block Compared to ECG 09/22/2016 07:02:10 No significant change was found Electronically Signed On 09-23-2016 8:45:05 CDT by Zaheer Galeas [email or web address] <ELECTRONICALLY SIGNED> By: Zaheer Galeas MD, [facility] 09/23/16 0845 8 8 Zaheer Galeas MD, [facility] /EPI
--- NOTE | ~2016-09-22 | EKG ---
[place] [address] [facility] [place] [address] ELECTROCARDIOGRAM REPORT Name: WOJCIECH FORD Room #: REG ASHLEY Martinez#: [id number] Admission: 09/22/16 Attend Phys: Discharge: Date of : 31 Report #: [id number] THIS REPORT FOR: //name// [facility] ED Test Date: 2016-09-22 Test Time: 07:02:10 Pat Name: WOJCIECH FORD Department: Room: Gender: F Apartment Rental Agent: : 1930 Requested By: Marko Baron Order Number: [id number] MD: Zaheer Galeas Measurements Intervals [place] Rate: 113 P: [place]: QRS: -41 QRSD: 177 T: 143 QT: 405 QTc: 556 Interpretive Statements Atrial fibrillation Left bundle branch block Compared to ECG 08/06/2016 15:03:30 Ventricular premature complex(es) no longer present Electronically Signed On 09-22-2016 8:58:43 CDT by Zaheer Galeas [email or web address] <ELECTRONICALLY SIGNED> By: Zaheer Galeas MD, [facility] 09/22/16 0858 0702 07 Zaheer Galeas MD, FACC /EPI
[~2016-09-22 06:53] MED LIST changes: +LEVOTHYROXIN0.075 MG PO; +LOPRESSOR50 PO
[2016-09-22] MEDS ORDERED: COLACE100 MG PO (07:09)
[2016-09-22] MEDS ORDERED: LASIX 40 MG TAB40 M2 PO (07:09)
[2016-09-22] MEDS ORDERED: VERAPAMIL ER240 M1 PO (07:09)
[2016-09-22] MEDS ORDERED: TRAMADOL 50 MG50 MG PO (07:10)
[2016-09-22 07:26] LABS: HEMATOCRIT 36.3 % (37.0-47.0); HEMOGLOBIN 11.7 gm/dL (12.0-15.0); MCH 29.6 pg (26.0-34.0); MCHC 32.1 g/dL (28.0-37.0); MCV 92.1 fL (80.0-100.0); PLATELET COUNT 141 thou/uL (150-400); RBC 3.94 mil/uL (4.20-5.00); RDW 17.8 % (10.5-14.5); WBC 7.1 thou/uL (4.0-11.0)
[2016-09-22 07:29] LABS: MANUAL DIFF YES
[2016-09-22 07:39] LABS: ANION GAP 11 mmol/L (7-16); BUN 35 mg/dL (7-18); CHLORIDE 110 mmol/L (98-107); CO2 22 mmol/L (21-32); CREATININE 1.5 mg/dL (0.6-1.0); GLUCOSE 67 mg/dL (74-106); POTASSIUM 3.3 mmol/L (3.5-5.1); SODIUM 143 mmol/L (136-145)
[2016-09-22 07:51] LABS: NT-PRO BRAIN NAT PEPTIDE 9225 pg/mL (<300); TROPONIN-I < 0.04 ng/mL (<0.04-0.07)
[2016-09-22 09:31] LABS: ABSOLUTE NEUTROPHILS 5.3 thou/uL (1.4-8.2); TOTAL CELL COUNT 100
[2016-09-22 09:32] LABS: ANISOCYTOSIS 1+
[2016-09-22 16:00] LABS: ALBUMIN 3.4 g/dL (3.4-5.0); ALKALINE PHOSPHATASE 104 U/L (46-116); DIRECT BILIRUBIN < 0.1 mg/dL (<0.1-0.3); SGOT 24 U/L (15-37); SGPT 21 U/L (30-65); TOTAL BILIRUBIN 0.1 mg/dL (<0.1-1.0); TOTAL PROTEIN 6.6 g/dL (6.4-8.2)
[2016-09-23 02:52] VITALS: BP 111/69
[2016-09-23 03:55] LABS: HEMATOCRIT 37.2 % (37.0-47.0); HEMOGLOBIN 11.9 gm/dL (12.0-15.0); MCH 29.5 pg (26.0-34.0); MCV 92.2 fL (80.0-100.0); RBC 4.04 mil/uL (4.20-5.00); RDW 17.9 % (10.5-14.5); WBC 7.4 thou/uL (4.0-11.0)
[2016-09-23 04:13] LABS: ALBUMIN 2.6 g/dL (3.4-5.0); BUN 48 mg/dL (7-18); CHLORIDE 99 mmol/L (98-107); CO2 26 mmol/L (21-32); CREATININE 2.3 mg/dL (0.6-1.0); GLUCOSE 67 mg/dL (74-106); PHOSPHORUS 4.9 mg/dL (2.5-4.9); POTASSIUM 5.5 mmol/L (3.5-5.1); TROPONIN-I < 0.04 ng/mL (<0.04-0.07)
[2016-09-23 04:14] LABS: ANION GAP 10 mmol/L (7-16); CALCIUM 9.7 mg/dL (8.5-10.1); SODIUM 135 mmol/L (136-145)
[2016-09-23 07:14] VITALS: BP 104/73
[2016-09-23 16:42] VITALS: BP 103/80
[2016-09-23 19:07] VITALS: BP 111/69
[2016-09-24 03:08] VITALS: BP 97/71
[2016-09-24 03:12] LABS: ALBUMIN 2.7 g/dL (3.4-5.0); CALCIUM 9.3 mg/dL (8.5-10.1); CREATININE 2.4 mg/dL (0.6-1.0); PHOSPHORUS 4.5 mg/dL (2.5-4.9)
[2016-09-24 03:13] LABS: POTASSIUM 4.5 mmol/L (3.5-5.1)
[2016-09-24 03:15] LABS: INR 1.2; PROTIME 12.7 Seconds (9.3-11.4)
[2016-09-24 13:55] LABS: CREATININE 2.1 mg/dL (0.6-1.0); POTASSIUM 4.3 mmol/L (3.5-5.1)
[2016-09-24 23:34] VITALS: BP 103/69
[2016-09-25 03:28] VITALS: BP 112/71
[2016-09-25 05:05] LABS: HEMATOCRIT 37.5 % (37.0-47.0); HEMOGLOBIN 12.1 gm/dL (12.0-15.0); MCH 29.5 pg (26.0-34.0); MCHC 32.2 g/dL (28.0-37.0); MCV 91.4 fL (80.0-100.0); RBC 4.1 mil/uL (4.20-5.00); WBC 7.1 thou/uL (4.0-11.0)
[2016-09-25 06:57] LABS: ALBUMIN 2.6 g/dL (3.4-5.0); CALCIUM 9.3 mg/dL (8.5-10.1); CREATININE 1.9 mg/dL (0.6-1.0); PHOSPHORUS 4.1 mg/dL (2.5-4.9); POTASSIUM 3.9 mmol/L (3.5-5.1)
[2016-09-25 08:45] VITALS: BP 99/70
[2016-09-25 13:20] VITALS: BP 118/67
[2016-09-25 18:43] VITALS: BP 133/80
[2016-09-25 20:07] VITALS: BP 132/80
[2016-09-26] VITALS (9 sets, daily range): BP systolic 117–141; BP diastolic 55–82
[2016-09-26 07:27] LABS: ALBUMIN 2.7 g/dL (3.4-5.0); CALCIUM 9.4 mg/dL (8.5-10.1); CREATININE 1.5 mg/dL (0.6-1.0); PHOSPHORUS 3.5 mg/dL (2.5-4.9); POTASSIUM 4.2 mmol/L (3.5-5.1)
[2016-09-27 03:39] VITALS: BP 139/75
[2016-09-27 07:35] VITALS: BP 136/84
[2016-09-27 11:40] VITALS: BP 122/73
[2016-09-27 15:40] VITALS: BP 144/78
[2016-09-27 19:43] VITALS: BP 137/81
[2016-09-28 04:43] VITALS: BP 142/96
[2016-09-28 07:37] VITALS: BP 117/64
[2016-09-28 11:18] VITALS: BP 129/75
[2016-09-28 16:22] VITALS: BP 136/89
[2016-09-28 19:15] VITALS: BP 111/71
[2016-09-29 03:21] VITALS: BP 110/61
[2016-09-29 07:30] VITALS: BP 125/77
[2016-09-29 12:08] VITALS: BP 102/61
[2016-09-29 15:55] VITALS: BP 102/64
[2016-09-29 19:29] VITALS: BP 123/75
[2016-09-30 03:27] VITALS: BP 112/75
[2016-09-30 08:40] VITALS: BP 120/63
[2016-09-30 13:45] VITALS: BP 19/66
== END 2016-09-30 16:45 | DRG 242 ==
LOC: ER 06:53 → EROBS 09:50 → ER 09:50 → 2N 09:50 → EROBS 11:16 → 2N 16:42
PROVIDERS: Emergency Medicine; Hospitalist; Internal Medicine Cardiovascular Disease; Nurse Practitioner Adult Health
DX: I48.91 Unspecified atrial fibrillation (principal); N17.0 Acute kidney failure with tubular necrosis; I13.0 Hypertensive heart and chronic kidney disease with heart failure and stage 1 through stage 4 chronic kidney disease, or unspecified chronic kidney disease; D68.59 Other primary thrombophilia; I50.42 Chronic combined systolic (congestive) and diastolic (congestive) heart failure; I42.9 Cardiomyopathy, unspecified; K29.70 Gastritis, unspecified, without bleeding; E86.0 Dehydration; Z96.653 Presence of artificial knee joint, bilateral; Z96.612 Presence of left artificial shoulder joint; Z96.611 Presence of right artificial shoulder joint; Z96.641 Presence of right artificial hip joint; E78.00 Pure hypercholesterolemia, unspecified; E78.5 Hyperlipidemia, unspecified; E87.6 Hypokalemia; E87.5 Hyperkalemia; N18.9 Chronic kidney disease, unspecified; I95.9 Hypotension, unspecified; R53.81 Other malaise; M19.90 Unspecified osteoarthritis, unspecified site; Z79.899 Other long term (current) drug therapy; Z88.5 Allergy status to narcotic agent; Z79.01 Long term (current) use of anticoagulants; Z88.0 Allergy status to penicillin; Z90.710 Acquired absence of both cervix and uterus; Z88.8 Allergy status to other drugs, medicaments and biological substances; Z90.49 Acquired absence of other specified parts of digestive tract; Z88.6 Allergy status to analgesic agent; Z88.1 Allergy status to other antibiotic agents; Z88.2 Allergy status to sulfonamides
CPT/HCPCS: 10081; 62110; 62900; 70005

== ENCOUNTER 2016-10-23 18:36 | Inpatient (IN) | payer OTHER ==
[~2016-10-23] VITALS: Ht 3 cm; Wt 69.9 kg
--- NOTE | ~2016-10-23 | EKG ---
[address] [address] ELECTROCARDIOGRAM REPORT Name: WOJCIECH FORD Anyi Room #: 211-P ADM IN M.R.#: [id number] Admission: 10/23/16 Attend Phys: Nathan Alvarado MD Discharge: Date of : 31 Report #: [id number] THIS REPORT FOR: //name// [facility] ED Test Date: 2016-10-23 Test Time: 19:01:47 Pat Name: WOJCIECH FORD Department: Room: 211 Gender: F Electronics Commodity Manager: JESI : 1930 Requested By: Jacklyn Silverman Order Number: [id number] MD: Vinh Martino Measurements Intervals [place] Rate: 60 P: [place]: QRS: 160 QRSD: 140 T: 58 QT: 440 QTc: 440 Interpretive Statements Afib/flutter and ventricular-paced rhythm No further analysis attempted due to paced rhythm Baseline wander in lead(s) V3 No previous ECG available for comparison Electronically Signed On 10-25-2016 22:11:45 CDT by Vinh Martino [email or web address] <ELECTRONICALLY SIGNED> By: Vinh Martino MD 10/25/16 2211 00 00 Vinh Martino MD /EPI
--- NOTE | ~2016-10-23 | CNG ---
[facility] [place] [address] CYTO-NONGYN REPORT PROCEDURE Name: WOJCIECH FORD Room #: 211-P ADM IN M.R.#: [id number] Admission: 10/23/16 Date of : 31 Discharge: Report #: [id number] Path Case #: [id number] CYTOPATHOLOGY REPORT COLLECTION DATE: 10/24/2016 RECEIVED DATE: 10/26/2016 SUBMITTING PHYS: Dr. Hollis Brody OTHER PHYS: Dr. Donnie Alvarado CLINICAL HISTORY: CHF, Exacerbation, Hypercapneic Acidosis SPECIMEN(S) RECEIVED: A.Pleural fluid * * * * * * * * * * * * FINAL DIAGNOSIS: A. Pleural fluid: - No malignant epithelial cells identified. Reactive mesothelial cells along with marked acute inflammatory cells. PATHOLOGIST: Radha Comer M.D. REPORT ELECTRONICALLY SIGNED BY: Radha Comer M.D. DATE/TIME: 10/27/2016 15:34 * * * * * * * * * * * * GROSS PATHOLOGY: A. Pleural fluid: The specimen is submitted unfixed, labeled "Wojciech Ford". Received by the Cytology Department is 15 mL of cloudy yellow fluid. One ThinPrep slide and a cell block were prepared. (mm 10.26.2016) ELECTROLYTIC DE SCALER(S): [facility] INITIAL CPT CODE(S): A; 10436, 97823 Professional services performed by [facility] at [facility] [address], [place] [address] Technical services performed by [facility] at [address] [place] [address]., [address], [place] [address]. [facility] [address] [place] [address], [facility] [address] [place], [place] [address] [place] [address] [place] [address] CYTO-NONGYN REPORT PROCEDURE Name: WOJCIECH FORD Room #: 211-P ADM IN M.R.#: [id number] Admission: 10/23/16 Date of : 31 Discharge: Report #: [id number] Path Case #: [id number] PHONE: [phone] DIRECTOR: Dread Millan M.D. * * * END OF REPORT * * *
--- NOTE | ~2016-10-23 | CNG ---
[facility] [place] [address] CYTO-NONGYN REPORT PROCEDURE Name: WOJCIECH FORD Room #: 211-P ADM IN M.R.#: [id number] Admission: 10/23/16 Date of : 32 Discharge: Report #: [id number] Path Case #: [id number] CYTOPATHOLOGY REPORT COLLECTION DATE: 10/26/2016 RECEIVED DATE: 10/26/2016 SUBMITTING PHYS: Dr. Hollis Brody OTHER PHYS: Dr. Donnie Alvarado CLINICAL HISTORY: CHF, Exacerbation, Hypercapneic acidosis SPECIMEN(S) RECEIVED: A.Pleural fluid * * * * * * * * * * * * FINAL DIAGNOSIS: A. Pleural fluid: - No malignant epithelial cells identified. - Low cellularity. - Few mesothelial cells and acute inflammatory cells present. PATHOLOGIST: Radha Comer M.D. REPORT ELECTRONICALLY SIGNED BY: Radha Comer M.D. DATE/TIME: 10/27/2016 15:36 * * * * * * * * * * * * GROSS PATHOLOGY: A. Pleural fluid: The specimen is submitted unfixed, labeled "Wojciech Ford". Received by the Cytology Department is five mL of cloudy red/yellow fluid. One ThinPrep slide and a cell block were prepared. (mm 10.26.2016) CONSULTING ENGINEER(S): CAROLYN Leblanc([facility] [place]) INITIAL CPT CODE(S): A; 31557, 05013 Professional services performed by [facility] at [facility] [address], [place] [address] Technical services performed by [facility] at [address] [place] [address]., [address], [place] [address]. [facility] [address] [place] [address], [address] [facility] [address] [place] [address] CYTO-NONGYN REPORT PROCEDURE Name: WOJCIECH FORD Room #: 211-P ADM IN M.R.#: [id number] Admission: 10/23/16 Date of : 32 Discharge: Report #: [id number] Path Case #: [id number] [address] [address] PHONE: [phone] DIRECTOR: Dread Millan M.D. * * * END OF REPORT * * *
[~2016-10-23 18:36] MED LIST changes: +COLACE100 MG PO; +TRAMADOL 50 MG50 MG PO; +VERAPAMIL ER240 M1 PO
[2016-10-23 18:37] VITALS: BP 114/55
[2016-10-23 19:37] LABS: HEMATOCRIT 33.6 % (37.0-47.0); HEMOGLOBIN 10.8 gm/dL (12.0-15.0); MCH 29.1 pg (26.0-34.0); MCHC 32.1 g/dL (28.0-37.0); MCV 90.4 fL (80.0-100.0); PLATELET COUNT 163 thou/uL (150-400); RBC 3.72 mil/uL (4.20-5.00); RDW 18.3 % (10.5-14.5); WBC 13.6 thou/uL (4.0-11.0)
[2016-10-23 19:39] LABS: MANUAL DIFF YES
[2016-10-23] MEDS ORDERED: LEVOTHYROXIN0.088 MG PO (19:39)
[2016-10-23] MEDS ORDERED: ZOLOFT50 MG (19:40)
[2016-10-23] MEDS ORDERED: LASIX 40 MG TAB40 MG PO (19:40)
[2016-10-23] MEDS ORDERED: COZAAR 25 MG TA25 M2 PO (19:40)
[2016-10-23] MEDS ORDERED: MELATONIN5 M1 (19:41)
[2016-10-23] MEDS ORDERED: XARELTO10 MG PO (19:41)
[2016-10-23] MEDS ORDERED: COLACE100 MG PO (19:42)
[2016-10-23] MEDS ORDERED: ALLOPURINOL 10100 M1 (19:42)
[2016-10-23] MEDS ORDERED: ULTRAM50 MG (19:44)
[2016-10-23 19:46] LABS: URINE BLOOD 1+ (Negative); URINE COLOR YELLOW; URINE GLUCOSE-RANDOM* NEGATIVE (Negative); URINE KETONES NEGATIVE (Negative); URINE LEUKOCYTES-REFLEX TRACE (Negative); URINE PROTEIN (DIPSTICK) TRACE (Negative); URINE SPECIFIC GRAVITY 1.025 (1.003-1.035); URINE UROBILINOGEN 0.2 E.U./dl (0.2-1.0)
[2016-10-23 19:48] LABS: ICTOTEST (BILI CONFIRMATORY) Negative (Negative); URINE BILIRUBIN NEGATIVE (Negative)
[2016-10-23] MEDS ORDERED: K-DUR 20 MEQ T20 MEQ PO (19:51)
[2016-10-23 19:52] LABS: CALCIUM 10.1 mg/dL (8.5-10.1); CREATININE 1.4 mg/dL (0.6-1.0); POTASSIUM 5.2 mmol/L (3.5-5.1)
[2016-10-23 19:56] LABS: HYALINE CASTS 0-3 Few /LPF (None Seen); SQUAMOUS 0-3 Few /LPF (0-3)
[2016-10-23 19:57] LABS: AMORPHOUS URATES Moderate /LPF (None Seen); URINE RBC 0-2 Rare /HPF (0-2); URINE WBC-REFLEX 0-5 Rare /HPF (0-5)
[2016-10-23 20:00] LABS: TROPONIN-I 0.13 ng/mL (<0.04-0.07)
[2016-10-23 20:03] LABS: ABSOLUTE NEUTROPHILS 12.2 thou/uL (1.4-8.2); ANISOCYTOSIS 1+; POLYCHROMASIA OCCASIONAL; TOTAL CELL COUNT 100
[2016-10-23 20:30] LABS: ABG SAMPLE TYPE ARTERIAL; BE(vivo) 5.6 mmol/L (-2 to +3); HCO3 34.4 mmol/L (22.0-26.0); LACTATE 0.89 mmol/L (0.5-2.0); O2(CT) 15.7 mL/dL (15.0-23.0); PO2 104.2 mmHg (80.0-100.0); sO2 96.9 % (92.0-98.0); tCO2 36.7 mmol/L (24.0-30.0)
[2016-10-23 20:31] LABS: PCO2 74.5 mmHg (35.0-45.0); STICK SITE R.BRACHIAL
[2016-10-23 20:32] LABS: pH 7.282 (7.360-7.450)
[2016-10-23 23:38] VITALS: BP 128/68
[2016-10-24] VITALS (7 sets, daily range): BP systolic 91–131; BP diastolic 45–72
[2016-10-24 02:00] LABS: HEMATOCRIT 33.1 % (37.0-47.0); HEMOGLOBIN 10.5 gm/dL (12.0-15.0); MCH 29.1 pg (26.0-34.0); MCHC 31.7 g/dL (28.0-37.0); MCV 91.8 fL (80.0-100.0); RBC 3.6 mil/uL (4.20-5.00); RDW 18.3 % (10.5-14.5); WBC 15.2 thou/uL (4.0-11.0)
[2016-10-24 02:25] LABS: CALCIUM 9.8 mg/dL (8.5-10.1); CREATININE 1.5 mg/dL (0.6-1.0); POTASSIUM 5.3 mmol/L (3.5-5.1); TROPONIN-I 0.11 ng/mL (<0.04-0.07)
[2016-10-24 12:36] LABS: HEMOGLOBIN 10.7 gm/dL (12.0-15.0); MCH 29.4 pg (26.0-34.0); MCHC 31.5 g/dL (28.0-37.0); MCV 93.6 fL (80.0-100.0); RBC 3.64 mil/uL (4.20-5.00); RDW 18.8 % (10.5-14.5); WBC 14.9 thou/uL (4.0-11.0)
[2016-10-24 12:49] LABS: APTT 34.5 Seconds (24.5-32.8); INR 1.2
[2016-10-24 12:56] LABS: CALCIUM 9.9 mg/dL (8.5-10.1); CREATININE 1.6 mg/dL (0.6-1.0); POTASSIUM 5.4 mmol/L (3.5-5.1)
[2016-10-24 16:06] LABS: CLARITY HAZY; COLOR YELLOW; TOTAL VOLUME 55 mL
[2016-10-24 16:10] LABS: BF NUCLEATED CELLS 3306; BF RBC 2272
[2016-10-24 17:29] LABS: BF NEUTROPHILS 66; MANUAL DIFF YES
[2016-10-25 03:04] LABS: HEMATOCRIT 32.6 % (37.0-47.0); HEMOGLOBIN 10.3 gm/dL (12.0-15.0); MCH 29.3 pg (26.0-34.0); MCHC 31.6 g/dL (28.0-37.0); MCV 92.7 fL (80.0-100.0); RBC 3.52 mil/uL (4.20-5.00); RDW 18.5 % (10.5-14.5); WBC 14.8 thou/uL (4.0-11.0)
[2016-10-25 03:11] LABS: CALCIUM 9.7 mg/dL (8.5-10.1); CREATININE 1.8 mg/dL (0.6-1.0); POTASSIUM 5.2 mmol/L (3.5-5.1)
[2016-10-25 03:43] VITALS: BP 110/60
[2016-10-25 07:14] VITALS: BP 122/57
[2016-10-25 10:08] LABS: BODY FLUID ALBUMIN 1.9 g/dL (()); BODY FLUID AMYLASE 20 U/L (()); BODY FLUID GLUCOSE 124 mg/dL (()); BODY FLUID LDH 262 IU/L (()); BODY FLUID PROTEIN 3.8 g/dL (())
[2016-10-25 11:12] VITALS: BP 112/76
[2016-10-25 15:43] VITALS: BP 113/60
[2016-10-25 15:46] LABS: ABG SAMPLE TYPE ARTERIAL; BE(vivo) 2.9 mmol/L (-2 to +3); HCO3 30.3 mmol/L (22.0-26.0); LACTATE 1.42 mmol/L (0.5-2.0); O2(CT) 14.5 mL/dL (15.0-23.0); PCO2 61.7 mmHg (35.0-45.0); PO2 79.8 mmHg (80.0-100.0); sO2 94.4 % (92.0-98.0); tCO2 32.2 mmol/L (24.0-30.0)
[2016-10-25 15:47] LABS: STICK SITE R.RADIAL; pH 7.309 (7.360-7.450)
[2016-10-25 19:32] VITALS: BP 126/61
[2016-10-26 02:35] LABS: HEMATOCRIT 32.2 % (37.0-47.0); HEMOGLOBIN 10.3 gm/dL (12.0-15.0); MCH 29.3 pg (26.0-34.0); MCV 91.6 fL (80.0-100.0); PLATELET COUNT 190 thou/uL (150-400); RBC 3.52 mil/uL (4.20-5.00); RDW 18.5 % (10.5-14.5); WBC 14.9 thou/uL (4.0-11.0)
[2016-10-26 02:38] LABS: MANUAL DIFF YES
[2016-10-26 02:43] LABS: CALCIUM 9.8 mg/dL (8.5-10.1); CREATININE 1.8 mg/dL (0.6-1.0); POTASSIUM 4.9 mmol/L (3.5-5.1)
[2016-10-26 03:30] LABS: ABSOLUTE NEUTROPHILS 13.4 thou/uL (1.4-8.2); TOTAL CELL COUNT 100
[2016-10-26 03:31] LABS: ANISOCYTOSIS 2+
[2016-10-26 04:10] VITALS: BP 143/71
[2016-10-26 08:56] VITALS: BP 123/62
[2016-10-26 11:33] LABS: BF NUCLEATED CELLS 447; BF RBC 5575
[2016-10-26 11:34] LABS: CLARITY CLOUDY; COLOR ORANGE; TOTAL VOLUME 60 mL
[2016-10-26 12:02] VITALS: BP 123/63
[2016-10-26 12:44] LABS: ABG SAMPLE TYPE ARTERIAL; BE(vivo) 1.7 mmol/L (-2 to +3); HCO3 29.5 mmol/L (22.0-26.0); LACTATE 1.14 mmol/L (0.5-2.0); O2(CT) 14.8 mL/dL (15.0-23.0); PCO2 63.7 mmHg (35.0-45.0); PO2 80.8 mmHg (80.0-100.0); STICK SITE R.RADIAL; pH 7.284 (7.360-7.450); sO2 94.3 % (92.0-98.0); tCO2 31.5 mmol/L (24.0-30.0)
[2016-10-26 15:19] LABS: MANUAL DIFF YES
[2016-10-26 15:24] LABS: BF MACROPHAGE 12; BF NEUTROPHILS 54
[2016-10-26 15:39] VITALS: BP 11/44
[2016-10-26 19:10] VITALS: BP 108/54
[2016-10-27 03:03] LABS: HEMATOCRIT 30.1 % (37.0-47.0); HEMOGLOBIN 9.7 gm/dL (12.0-15.0); MCH 29.6 pg (26.0-34.0); MCHC 32.4 g/dL (28.0-37.0); MCV 91.2 fL (80.0-100.0); PLATELET COUNT 173 thou/uL (150-400); RDW 18.3 % (10.5-14.5); WBC 10.5 thou/uL (4.0-11.0)
[2016-10-27 03:06] LABS: MANUAL DIFF YES
[2016-10-27 03:09] LABS: CALCIUM 9.6 mg/dL (8.5-10.1); CREATININE 1.6 mg/dL (0.6-1.0); MAGNESIUM 2.1 mg/dL (1.8-2.4); POTASSIUM 4.4 mmol/L (3.5-5.1)
[2016-10-27 03:17] VITALS: BP 123/60
[2016-10-27 03:51] LABS: ABSOLUTE NEUTROPHILS 8.5 thou/uL (1.4-8.2); ANISOCYTOSIS 2+; TOTAL CELL COUNT 100
[2016-10-27 06:42] LABS: ABG SAMPLE TYPE ARTERIAL; HCO3 31.9 mmol/L (22.0-26.0); LACTATE 1.04 mmol/L (0.5-2.0); O2(CT) 14.4 mL/dL (15.0-23.0); O2Hb 96.9 % (92.0-98.0); PO2 115.3 mmHg (80.0-100.0); sO2 97.6 % (92.0-98.0)
[2016-10-27 06:43] LABS: PCO2 67.3 mmHg (35.0-45.0); pH 7.294 (7.360-7.450)
[2016-10-27 06:45] LABS: STICK SITE L.RADIAL
[2016-10-27 07:08] VITALS: BP 131/60
[2016-10-27 12:00] VITALS: BP 119/51
[2016-10-27 16:00] VITALS: BP 118/67
[2016-10-27 19:04] VITALS: BP 119/56
[2016-10-28 02:47] LABS: HEMOGLOBIN 8.8 gm/dL (12.0-15.0); MCH 29.6 pg (26.0-34.0); MCHC 32.7 g/dL (28.0-37.0); MCV 90.6 fL (80.0-100.0); PLATELET COUNT 155 thou/uL (150-400); RBC 2.98 mil/uL (4.20-5.00); RDW 18.3 % (10.5-14.5); WBC 9.8 thou/uL (4.0-11.0)
[2016-10-28 02:49] LABS: MANUAL DIFF YES
[2016-10-28 03:00] LABS: CALCIUM 9.5 mg/dL (8.5-10.1); CREATININE 1.5 mg/dL (0.6-1.0); MAGNESIUM 2.1 mg/dL (1.8-2.4); POTASSIUM 3.8 mmol/L (3.5-5.1)
[2016-10-28 04:23] VITALS: BP 113/61
[2016-10-28 07:11] LABS: ABG SAMPLE TYPE ARTERIAL; HCO3 34.7 mmol/L (22.0-26.0); LACTATE 0.88 mmol/L (0.5-2.0); O2(CT) 14.3 mL/dL (15.0-23.0); O2Hb 98.2 % (92.0-98.0); PO2 178.1 mmHg (80.0-100.0); tCO2 36.9 mmol/L (24.0-30.0)
[2016-10-28 07:12] LABS: PCO2 69.3 mmHg (35.0-45.0); pH 7.318 (7.360-7.450)
[2016-10-28 07:13] LABS: STICK SITE L.RADIAL
[2016-10-28 07:15] VITALS: BP 116/58
[2016-10-28 07:23] LABS: TOTAL CELL COUNT 100
[2016-10-28 07:24] LABS: ANISOCYTOSIS 2+; HYPOCHROMASIA 1+; OVALOCYTES 1+
[2016-10-28 12:11] VITALS: BP 121/61
[2016-10-28 12:15] VITALS: BP 136/93
[2016-10-28] MEDS ORDERED: LORAZEPAM I2 MG/1 M2 PO (12:24)
[2016-10-28 13:09] LABS: BODY FLUID ALBUMIN 1.6 g/dL (()); BODY FLUID AMYLASE 37 U/L (()); BODY FLUID GLUCOSE 108 mg/dL (()); BODY FLUID LDH 85 IU/L (()); BODY FLUID PROTEIN 3.3 g/dL (())
[2016-10-28 13:45] VITALS: BP 136/93
[2016-10-28 14:28] VITALS: BP 136/93
== END 2016-10-28 16:25 | disposition hospice, home (50) | DRG 177 ==
LOC: ER 18:36 → 2N 21:06 → EROBS 21:06 → 2N 21:06
PROVIDERS: Emergency Medicine; Internal Medicine; Internal Medicine Endocrinology, Diabetes & Metabolism; Internal Medicine Pulmonary Disease; Nurse Practitioner; Nurse Practitioner Family
PROC: 5A09457 Assistance with Respiratory Ventilation, 24-96 Consecutive Hours, Continuous Positive Airway Pressure (ICD-10-PCS; principal; 2016-10-23)
PROC: 0W993ZX Drainage of Right Pleural Cavity, Percutaneous Approach, Diagnostic (ICD-10-PCS; 2016-10-24)
PROC: 0W9B3ZX Drainage of Left Pleural Cavity, Percutaneous Approach, Diagnostic (ICD-10-PCS; 2016-10-26)
DX: J69.0 Pneumonitis due to inhalation of food and vomit (principal); J96.21 Acute and chronic respiratory failure with hypoxia; I50.23 Acute on chronic systolic (congestive) heart failure; J96.22 Acute and chronic respiratory failure with hypercapnia; J44.1 Chronic obstructive pulmonary disease with (acute) exacerbation; N17.9 Acute kidney failure, unspecified; I42.9 Cardiomyopathy, unspecified; J90 Pleural effusion, not elsewhere classified; Z66 Do not resuscitate; Z51.5 Encounter for palliative care; I48.91 Unspecified atrial fibrillation; N18.9 Chronic kidney disease, unspecified; E03.9 Hypothyroidism, unspecified; Y95 Nosocomial condition; M19.90 Unspecified osteoarthritis, unspecified site; D64.9 Anemia, unspecified; Z95.0 Presence of cardiac pacemaker; Z90.710 Acquired absence of both cervix and uterus; Z90.49 Acquired absence of other specified parts of digestive tract; Z88.0 Allergy status to penicillin; Z88.2 Allergy status to sulfonamides; Z88.5 Allergy status to narcotic agent
CPT/HCPCS: 10081